=== PATIENT | male | born 1960 | race Caucasian/White ===

== ENCOUNTER 2025-06-17 12:38 | Inpatient (IN) ==
--- NOTE | 2025-06-17 12:49 | Emergency Department Note ---
Impression & Plan Atrial flutter with rapid ventricular response, Hyponatremia, Hypokalemia, LLL pneumonia ED Provider Note NAME: DES FERRERA AGE: 64 SEX: M : 1960 ARRIVES VIA: Ambulance INFORMANT: Patient, ED PROVIDER(S): Teja Aguilar MD CHIEF COMPLAINT: Outpatient referral, elevated heart rate MEDICAL DECISION MAKING: Patient presents due to concern for elevated heart rate noted to be in atrial flutter RVR. IV was established and blood work was obtained. The patient did finish a full liter bolus but was still tachycardic in the 140s so the patient was ordered 25 mg of IV Cardizem. Patient did have improvement in his rates into the 120s. Patient relatively asymptomatic w/ regard to his tachycardia ie no lightheadness, CP, or SOB. Blood work with a white count of 12 with normal platelet count. Hemoglobin is slightly elevated. This may be due to hemoconcentration. Noted to be hyponatremic although the patient has been taking prep for colonoscopy and could be secondary to GI losses in addition to lack of eating much at all in the last 2 days. Patient also noted to be hypokalemic. Urine and serum osmolality ordered along with urine electrolytes. Patient was ordered 3 potassium chloride bags to be given. Troponin to 38.4 likely demand to given the patient's tachycardia. Patient has no leg swelling or calf pain believe PE to be less likely. Believe this likely demand ischemia the patient's EKG does show rapid heart rate the patient is asymptomatic no chest pain or shortness of breath. Given the aforementioned I did speak the on-call hospitalist service Dr. Alejandro and the patient was admitted to the medicine service. Chest x-ray was commented to have a left infrahilar opacity. Patient does have a white count of 12 with cough so 2 g of IV Rocephin ordered. Patient was ordered IV heparin for a flutter rvr. Critical Care: I have personally spent 37 minutes of critical care time in direct management of this patient. This includes bedside care, interpretation of diagnostic studies, and testing, discussion with consultants, patient, and family members, and other require inpatient management activities. This 37 minutes is in excess of all separately billable procedures. Discussion w/ other healthcare providers: Dr. Alejandro inpatient medicine service Prior /Outside records reviewed: None Differential diagnosis: Premature contractions, electrolyte abnormality, cardiac dysrhythmia, thyroid dysfunction, infection, toxicologic, anxiety among others were considered. Diagnostics, as interpreted by me: ECG: Atrial flutter with variable AV block, rate of 130, normal QRS duration, left axis deviation subtle depressions noted in the lateral leads. No obvious STEMI. Cardiac monitoring: An order was placed for continuous cardiac monitoring. The monitor shows a rate of 144 with tachycardic and regular rhythm. Patient was placed on pulse oximetry Medical decision rules: [id number] score Imaging studies: I informally interpreted the patient's chest x-ray does not show evidence of obvious pneumothorax with formal report to follow. HPI: Patient presents due to concern for elevated heart rate. The patient was in preop for colonoscopy and was noted to have an elevated heart rate. Patient states that he does have a known prior history of A-fib status post ablation about 5 years ago. In preparation for his colonoscopy the patient is not eaten anything since Sunday night. Patient states that he has been taking the prep and has been trying to drink enough fluids. Patient denies any chest pains or shortness of breath no palpitations no dizziness or lightheadedness. Patient has only been taking his metoprolol and none of his other meds. Patient is not anticoagulated. He does follow through [facility]. PAST MEDICAL HISTORY: See Below PAST SURGICAL HISTORY: See Below SOCIAL HISTORY: See Below HOME MEDICATIONS: See Below ALLERGIES: See Below VITALS: See Below PHYSICAL EXAMINATION: GENERAL: NAD, non-toxic. Wearing glasses. EYE EXAM: Normal conjunctiva. PERRL, no anisocoria and EOM's grossly intact w/o pain. OROPHARYNX: Moist mucus membranes, grossly normal dentition. NECK: Trachea midline, no stridor. LUNGS: Clear to auscultation. Normal chest wall mechanics. HEART: Tachycardic and regular, no MRG. ABDOMEN: Abdomen soft, non-tender, no masses, no rebound or guarding. SKIN: No rashes and no bruising. UPPER EXTREMITIES: Upper extremities are grossly normal. LOWER EXTREMITIES: Grossly normal, no edema. Negative Homans' sign bilaterally. NEURO EXAM: Awake and alert, follows commands, no obvious facial asymmetry, normal speech, moves all 4 extremities. 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 S/P ablation of atrial fibrillation History of right hip replacement Family History Father , stage 4; age 83 Cancer Mother , age 93 Heart disease Social History Smoking Status: Current every day smoker Tobacco Type: Cigarettes Age Started Using Tobacco: 21; packs per day: 0.5; Hx Alcohol Use: Yes Alcohol type: beer Hx Substance Use: No Preferred Language: Citizen Of [place] Communication Ability: Effective Security Risk Analyst Required: No marital status: Single Current Living Situation: Alone Current Living Situation Comment: lives in [place] current occupational status: retired How many Children do You have: 0 Feels Safe at Home: Yes Safety Concerns: Feels Safe At This Time Assistive Devices: None Allergies Allergies Allergy/AdvReac Type Severity Reaction Status Date / Time dofetilide AdvReac Severe QT Verified 06/17/25 15:34 PROLONGATION Home Meds Home Medications Medication Instructions Recorded Confirmed chlorthalidone 50 mg tablet 50 mg PO DAILY 06/17/25 06/17/25 dapagliflozin propanediol 5 mg 5 mg PO QAM 06/17/25 06/17/25 tablet (Farxiga) metoprolol succinate 50 mg 50 mg PO BID 06/17/25 06/17/25 tablet,extended release 24 hr multivitamin 1 tab PO DAILY 06/17/25 06/17/25 potassium chloride 20 mEq 20 meq PO QDL 06/17/25 06/17/25 tablet,extended release rosuvastatin 20 mg tablet 20 mg PO HS 06/17/25 06/17/25 tirzepatide 12.5 mg/0.5 mL 12.5 mg subcut WK 06/17/25 06/17/25 subcutaneous pen injector (Mounjaro) Results & Data (ED) Vital Signs Vital Signs - 24 hr 06/17/25 12:47 06/17/25 12:50 06/17/25 12:54 Temperature Temperature Source Pulse Rate 128 H 136 H Pulse Rate from SpO2 Sensor 140 H Respiratory Rate 25 H Respiratory Effort / Characteristics Respiratory Depth Blood Pressure 133/99 Blood Pressure Mean 107 Pulse Oximetry 94 Oxygen Delivery Method Sepsis Recent Fever Within 48 Hours Sepsis New/Unexplained Change in Mental Status Sepsis Action Taken by Nursing 06/17/25 12:59 06/17/25 13:01 06/17/25 13:03 Temperature 36.7 C Temperature Source Oral Pulse Rate 126 H 123 H Pulse Rate from SpO2 Sensor 134 H Respiratory Rate 16 15 Respiratory Effort / Characteristics Non-Labored Spontaneous Respiratory Depth Normal Blood Pressure 133/99 138/87 Blood Pressure Mean 110 92 Pulse Oximetry 95 95 Oxygen Delivery Method Room Air Sepsis Recent Fever Within 48 Hours No Sepsis New/Unexplained Change in Mental Status No Sepsis Action Taken by Nursing No Action Required 06/17/25 13:24 06/17/25 13:31 06/17/25 13:36 Temperature Temperature Source Pulse Rate 127 H 119 H Pulse Rate from SpO2 Sensor 141 H 113 H Respiratory Rate 23 22 Respiratory Effort / Characteristics Respiratory Depth Blood Pressure 132/77 Blood Pressure Mean 104 Pulse Oximetry 96 94 Oxygen Delivery Method Sepsis Recent Fever Within 48 Hours Sepsis New/Unexplained Change in Mental Status Sepsis Action Taken by Nursing 06/17/25 14:06 06/17/25 14:48 06/17/25 15:06 Temperature Temperature Source Pulse Rate 139 H 141 H 88 Pulse Rate from SpO2 Sensor 140 H Respiratory Rate 19 24 22 Respiratory Effort / Characteristics Respiratory Depth Blood Pressure Blood Pressure Mean Pulse Oximetry 96 Oxygen Delivery Method Sepsis Recent Fever Within 48 Hours Sepsis New/Unexplained Change in Mental Status Sepsis Action Taken by Jail Medications Current Medication List: was personally reviewed by me Laboratory Data Attestation: I reviewed the patient's lab results. 06/17/25 12:48 06/17/25 12:48 Lab Results 06/17/25 06/17/25 06/17/25 Range/Units 12:48 13:06 15:03 WBC 12.05 H (4.8-10.8) K/ul RBC 5.88 (4.70-6.10) M/uL Hgb 18.4 H (14.0-18.0) g/dl Hct 50.4 (42.0-52.0) % MCV 85.7 (80.0-100.0) fL MCH 31.3 (25.0-34.0) pg MCHC 36.5 H (32.0-36.0) g/dL RDW Std Deviation 40.2 (36.4-46.3) fL RDW Coeff of Gael 12.8 (11.5-14.5) % Plt Count 206 (130-400) K/uL MPV 8.8 L (9.4-12.4) fL Immature Gran % (Auto) 0.5 % Neut % (Auto) 75.0 % Lymph % (Auto) 12.2 % [place] % (Auto) 12.0 % Eos % (Auto) 0.1 % Baso % (Auto) 0.2 % Neut # (Auto) 9.04 H (1.40-6.50) K/uL Lymph # (Auto) 1.47 (1.20-3.40) K/uL [place] # (Auto) 1.44 H (0.11-0.59) K/uL Eos # (Auto) 0.01 (0.00-0.50) K/uL Baso # (Auto) 0.03 (0.00-0.20) K/uL Immature Gran # (Auto) 0.06 (0.01-0.20) K/uL PT 12.6 H (9.0-12.0) Seconds INR 1.2 H (0.9-1.1) APTT 32 H (21-31) Seconds PTT Ratio 1.2 Heparin Anti-Xa, Unfract < 0.10 L (0.3-0.7) IU/ml Sodium 127 L (136-145) mmol/L Potassium 3.2 L (3.5-5.1) mmol/L Chloride 89 L (98-107) mmol/L Carbon Dioxide 27 (21-32) mmol/L Anion Gap 11 (3-11) BUN 17 (6-23) mg/dl Creatinine 1.05 (0.6-1.4) mg/dl Est Cr Clr Drug Dosing 86.6 ml/min eGFR 79.76 BUN/Creatinine Ratio 16.2 (10-20) Glucose 127 H (70-99(Fasting)) mg/dl Osmolality 269 L (280-300) mOsm/kg Calcium 9.0 (8.6-10.3) mg/dl Magnesium 2.2 (1.7-2.4) mg/dl Total Bilirubin 1.0 (0.2-1.0) mg/dl AST 19 (13-39) U/L ALT 18 (7-52) U/L Alkaline Phosphatase 68 (34-104) U/L Troponin I High Sens 38.4 H 38.0 H (0-20) pg/ml Total Protein 7.4 (6.0-8.3) gm/dl Albumin 3.6 (3.4-5.0) gm/dl Globulin 3.8 (2.5-4.0) gm/dl Albumin/Globulin Ratio 0.9 (0.9-2) TSH 2.311 (0.300-4.500) uIu/ml SARS-CoV-2 (PCR) NEGATIVE (Negative) Influenza Type A (PCR) Negative (Neg) Influenza Type B (PCR) Negative (Neg) RSV (RT-PCR) Negative (Neg) Administered Medications Heparin Sodium/Dextrose (Heparin 62515 Unit/500 Ml D5w) 25,000 units in 500 mls @ 20 mls/hr IV .Q24H JASVIR; Protocol Stop: 07/17/25 14:29 Last Admin: 06/17/25 15:07 Dose: 1,000 units/hr, 20 mls/hr Documented By: BABAK Co-signed By: LEEANNE Diltiazem HCl 125 mg/ Dextrose 125 mls @ 5 mls/hr IV .Q24H JASVIR; Protocol Stop: 07/17/25 15:14 Last Admin: 06/17/25 16:09 Dose: 5 mg/hr, 5 mls/hr Documented By: BABAK Co-signed By: MANNY Sodium Chloride (Nss) 1,000 mls @ 80 mls/hr IV .[id number] [facility] Stop: 06/18/25 16:14 Last Admin: 06/17/25 15:11 Dose: 80 mls/hr Documented By: BABAK Nicotine (Nicotine 14 Mg/24 Hr Patch) 1 patch TD QAM [facility] Stop: 07/17/25 16:48 Last Admin: 06/17/25 17:27 Dose: 1 patch Documented By: BERTHA Discontinued Medications Diltiazem HCl (Diltiazem Hcl 5 Mg/Ml 5 Ml Vial) 25 mg IV NOW STA Stop: 06/17/25 13:53 Last Admin: 06/17/25 14:48 Dose: 25 mg Documented By: BABAK Co-signed By: AMY Heparin Sodium/Dextrose (Heparin Iv Adult Wt-Based Low-Dose *No* Initial Bolus Protocol) 1 each IV ONE STA; Protocol Stop: 06/17/25 13:59 Last Admin: 06/17/25 15:07 Dose: Not Given Documented By: BABAK Sodium Chloride (Nss) 1,000 mls @ 999 mls/hr IV .Q1H1M STA Stop: 06/17/25 13:49 Last Infusion: 06/17/25 15:24 Dose: Infused Documented By: Admin: 06/17/25 13:16 Dose: 999 mls/hr Documented By: BABAK Potassium Chloride (K Jeff / Wtr) 10 meq in 100 mls @ 100 mls/hr IV Q1H JASVIR Stop: 06/17/25 17:29 Last Admin: 06/17/25 17:27 Dose: 100 mls/hr Documented By: Infusion: 06/17/25 16:11 Dose: Infused Documented By: Admin: 06/17/25 15:11 Dose: 100 mls/hr Documented By: BABAK Ceftriaxone Sodium (Rocephin) 2,000 mg in 50 mls @ 100 mls/hr IV NOW STA Stop: 06/17/25 15:00 Last Infusion: 06/17/25 15:24 Dose: Infused Documented By: Admin: 06/17/25 14:52 Dose: 100 mls/hr Documented By: BABAK Ioversol (Optiray 320 125ml) 120 ml IV ONCE ONE Stop: 06/17/25 16:35 Last Admin: 06/17/25 16:34 Dose: 120 ml Documented By: WILLIE Potassium Chloride (Potassium Chloride 10 Meq Tabcr) 40 meq PO NOW STA Stop: 06/17/25 14:16 Last Admin: 06/17/25 15:05 Dose: 40 meq Documented By: BABAK Imaging Data Radiologist's Impression: Chest X-Ray 06/17/25 12:49 XR chest 1V portable CLINICAL HISTORY: Dysrhythmia a COMPARISON STUDY: No previous studies for comparison. FINDINGS: The heart is mildly enlarged. An event recorder overlies the left heart shadow. There is mild central vascular prominence without evidence of overt failure. There are no significant pleural effusions. There is a subtle left infrahilar opacity. This is nonspecific and could be infectious/inflammatory, atelectatic, a summation artifact, or relate to an underlying nodule. Short-term radiographic follow-up is recommended. IMPRESSION: 1. Subtle nonspecific left infrahilar opacity. Short-term radiographic follow-up is recommended. ACT 112: Negative or not required by law. Electronically signed by: Thierno Cowan M.D. 06/17/2025 1:12 PM Chest CTA 06/17/25 15:05 Clinical history: Rule out pulmonary embolism Technique: Axial computed tomography images were obtained of the chest after the administration of intravenous contrast according to the CT angiogram protocol Findings: There is no definite sign of pulmonary embolism. There is alveolar consolidation in the left lower lobe, likely due to pneumonia. There are small calcified granulomas in the right middle lobe. There is no pleural effusion or pneumothorax. There is no sign of pulmonary fibrosis or other diffuse interstitial process. No endobronchial lesion is seen There are mildly enlarged mediastinal and left hilar lymph nodes, measuring up to 2 cm. The thoracic aorta appears unremarkable with no sign of aneurysm or dissection. There is no pericardial effusion. There is extensive coronary atherosclerosis There is a 2.2 cm left renal cyst. No fracture is seen. No focal osseous lesion is evident Impression: 1. No definite sign of pulmonary embolism 2. Left lower lobe pneumonia 3. Mild mediastinal and left hilar adenopathy, which may be secondary to the pneumonia 4. Extensive coronary atherosclerosis 5. Left renal cyst ACT 112: Positive. There are findings on this exam that require communication between the performing entity and the patient following Patient Test Result Information Act ([place] ACT 112) guidelines. Electronically signed by Tru Penn 06-17-2025 5:01 PM Discharge Plan Visit Data Chief Complaint: Cardiac Assessment Stated Complaint: TACHYCARDIA ED Provider: Teja Aguilar Discharge Problem: Atrial flutter with rapid ventricular response, Hyponatremia, Hypokalemia, LLL pneumonia Patient Disposition: Admitted As Inpatient Condition: Good Discharge Instructions Interventions: ED Discharge Assessment Last Done: 06/17/25 16:45 Discharge Problem: LLL pneumonia Qualifiers: Pneumonia type: due to unspecified organism Qualified Code(s): J18.9 - Pneumonia, unspecified organism
[2025-06-17 13:06] LABS: Hematocrit (blood only) 50.4 % (42.0-52.0); Hemoglobin 18.4 g/dl (14.0-18.0); Immature Granulocytes # (auto) 0.06 K/uL (0.01-0.20); Immature Granulocytes % (auto) 0.5 %; Mean Corpuscular Hemoglobin 31.3 pg (25.0-34.0); Mean Corpuscular Volume 85.7 fL (80.0-100.0); Platelet Count 206 K/uL (130-400); RDW Standard Deviation 40.2 fL (36.4-46.3); Red Blood Count 5.88 M/uL (4.70-6.10); White Blood Count 12.05 K/ul (4.8-10.8)
--- NOTE | 2025-06-17 13:13 | XRay Report ---
XR chest 1V portable CLINICAL HISTORY: Dysrhythmia a COMPARISON STUDY: No previous studies for comparison. FINDINGS: The heart is mildly enlarged. An event recorder overlies the left heart shadow. There is mi ld central vascular prominence without evidence of overt failure. There are no significant pleural ef fusions. There is a subtle left infrahilar opacity. This is nonspecific and could be infectious/infla mmatory, atelectatic, a summation artifact, or relate to an underlying nodule. Short-term radiographi c follow-up is recommended. IMPRESSION: 1. Subtle nonspecific left infrahilar opacity. Short-term radiographic follow-up is recommended. ACT 112: Negative or not required by law. Electronically signed by: Thierno Cowan M.D. 06/17/2025 1:12 PM
[2025-06-17] MEDS: SODIUM CHLORIDE 0.9% 1,000 ML IV STA (13:16)
[2025-06-17 13:20] LABS: Alanine Aminotransferase 18.0 U/L (7-52); Albumin Globulin Ratio 0.9 (0.9-2); Albumin Level 3.6 gm/dl (3.4-5.0); Alkaline Phosphatase 68.0 U/L (34-104); Anion Gap 11.0 (3-11); Bilirubin,Total 1.0 mg/dl (0.2-1.0); Blood Urea Nitrogen 17.0 mg/dl (6-23); Calcium 9.0 mg/dl (8.6-10.3); Carbon Dioxide 27.0 mmol/L (21-32); Chloride 89.0 mmol/L (98-107); Creatinine Clr Calc Pharmacy 86.6 ml/min; Globulin 3.8 gm/dl (2.5-4.0); Glucose 127.0 mg/dl (70-99(Fasting)); Magnesium 2.2 mg/dl (1.7-2.4); Potassium 3.2 mmol/L (3.5-5.1); Sodium 127.0 mmol/L (136-145); Total Protein 7.4 gm/dl (6.0-8.3)
[2025-06-17 13:28] LABS: INR 1.2 (0.9-1.1); Partial Thromboplastin Time 32 Seconds (21-31); Prothrombin Time 12.6 Seconds (9.0-12.0)
[2025-06-17 13:34] LABS: Thyroid Stimulating Hormone 2.311 uIu/ml (0.300-4.500)
[2025-06-17 14:07] LABS: Influenza A virus by PCR Negative (Neg); Influenza B virus by PCR Negative (Neg); SARS CoV2 RNA(COVID-19) Ceph NEGATIVE (Negative)
--- NOTE | 2025-06-17 14:17 | History & Physical Report ---
Date of Service June 17, 2025 Assessment & Plan (1) Atrial fibrillation with RVR: (2) Hyponatremia: (3) Hypokalemia: (4) Diabetes mellitus: (5) Essential hypertension: (6) Hyperlipidemia: (7) Implantable loop recorder present: (8) LLL pneumonia: Plan 64yo male with history of a.fib s/p ablation procedure at [facility] about 4 years ago, loop recorder status, T2DM, HTN, and hyperlipidemia presents from [facility] after he was found to be in rapid a.fib. He had gone to [facility] for a scheduled colonoscopy earlier today when the rapid a.fib was discovered. Despite the a.fib he denies any palpitations, dizziness, chest pain, dyspnea, or dyspnea on exertion. He has had cough for several days and in the ER today developed fever to 38.3 C. #rapid a.fib - -risk factors for such -- prior a.fib history, hypokalemia, dehydration from bowel prep, physiological stress from LLL pneumonia, physiological stress from recent travels, etc. -with cardizem bolus IV x 1 in ER his rates quickly improved to <100 -will continue cardizem drip -cont home meto succ 50mg BID -agree with heparin infusion -ultimately will need transition to PO Eliquis or similar -CHADS-VASc score is 1 (diabetes) -as patient has NOT been on chronic anticoagulation, chemical cardioversion or electrical cardioversion (unless it is a MINERVA cardioversion) not recommended at this time -hopefully he will spontaneously convert with correction of low K, Rx of pneumonia, and re-hydration with IV fluids -check echo -check loop recorder interrogation to see when he converted to a.fib -of note - TSH is wnl #hyponatremia - -appears volume contracted in the setting of bowel prep -isotonic IV fluids with serial BMPs #hypokalemia - -2nd to chlorthalidone -2nd to bowel prep/frequent stooling -2nd to limited PO intake since Sunday pm in setting of 2-day prep -replete with IV/PO supplementation -mag level wnl #LLL pneumonia - -rocephin 2gm given in ER; will continue -add azithromycin 500mg daily for atypical coverage -blood cx's x 2 sets -will obtain CTA chest to r/o concomitant PE in setting of long-distance air travel recently -send legionella urine ag -COVID/flu/RSV negative #tobacco dependence - -nicoderm patch daily -career guidance counselor to quit #T2DM - -hold Mounjaro -can cont Farxiga -check BSGs ac/hs -check a1c while here -add novolog SSI #hyperlipidemia - -can cont statin #polycythemia - -likely due to volume contraction -repeat CBC in 48 hours #minimally elevated troponin - -likely myocardial demand ischemia in setting of rapid a.fib as well as LLL pneumonia -no ischemic sx's -no evidence of ACS -echo pending #DVT proph - -heparin infusion pt's sister updated at bedside during the admission process History of Present Illness Chief Complaint: rapid a.fib Primary Care Provider: RADHA WASHINGTON 64yo male with history of a.fib s/p ablation procedure at [facility] about 4 years ago, loop recorder, T2DM, HTN, and hyperlipidemia presents from [facility] after he was found to be in rapid a.fib. He had gone to [facility] for a scheduled colonoscopy earlier today when the rapid a.fib was discovered. Despite the a.fib he denies any palpitations, dizziness, chest pain, dyspnea, or dyspnea on exertion. He reports he hasn't eaten regular food since Sunday pm, and he started his colonoscopy prep on Sunday pm. Although he denies any cardiopulmonary symptoms he states he "felt like something was off" starting late Sunday. In addition, he has had a mild cough that began on Sunday. Feels like the cough is from his throat. He recently traveled to the [place] in late April and returned from the [place] to the [place] on June 07. Denies having had leg swelling during the travels or any pulmonary symptoms. Mr Macias does continue to follow with [facility] and saw them in 03/2025. At that time he was told he could go to yearly visits. Is NOT on chronic anticoagulation. Per his recollection his loop recorder in the last several years has only showed 1 episode of PAF. The loop recorder was exchanged out in early 2024 at [facility]. Allergies Allergy/AdvReac Type Severity Reaction Status Date / Time dofetilide AdvReac Severe QT Verified 06/17/25 15:34 PROLONGATION Home Medications Medication Instructions Recorded Confirmed Type chlorthalidone 50 mg tablet 50 mg PO DAILY 06/17/25 06/17/25 History dapagliflozin propanediol 5 mg 5 mg PO QAM 06/17/25 06/17/25 History tablet (Farxiga) metoprolol succinate 50 mg 50 mg PO BID 06/17/25 06/17/25 History tablet,extended release 24 hr multivitamin 1 tab PO DAILY 06/17/25 06/17/25 History potassium chloride 20 mEq 20 meq PO QDL 06/17/25 06/17/25 History tablet,extended release rosuvastatin 20 mg tablet 20 mg PO HS 06/17/25 06/17/25 History tirzepatide 12.5 mg/0.5 mL 12.5 mg subcut WK 06/17/25 06/17/25 History subcutaneous pen injector (Manuel) Past Med/Surg History Problem List (Updated 06/18/25 @ 05:53 by Jim Alejandro MD) LLL pneumonia (Acute) Hypokalemia (Acute) Hyponatremia (Acute) Atrial fibrillation with RVR Medical History (Updated 06/18/25 @ 05:53 by Jim Alejandro MD) Diabetes mellitus Essential hypertension Hyperlipidemia History of pheochromocytoma History of atrial fibrillation Implantable loop recorder present initial placement 2020, then exchanged in early 2024 ([facility]) Surgical History H/O partial adrenalectomy 1 adrenal gland removed due to pheochromocytoma S/P ablation of atrial fibrillation History of right hip replacement Family History Father , stage 4; age 83 Cancer Mother , age 93 Heart disease Social History Smoking Status: Current every day smoker Tobacco Type: Cigarettes Age Started Using Tobacco: 21; packs per day: 0.5; Hx Alcohol Use: Yes Alcohol type: beer Hx Substance Use: No Preferred Language: Swedish Communication Ability: Effective Diploma Pharmacy Technician Required: No marital status: Single Current Living Situation: Alone Current Living Situation Comment: lives in [place] current occupational status: retired How many Children do You have: 0 Feels Safe at Home: Yes Safety Concerns: Feels Safe At This Time Assistive Devices: None Review of Systems Review of Systems: gen - denies fevers or chills; felt "off" the last 48 hours with some fatigue; no recent weight changes eyes - no ocular complaints HENT - mild post-nasal drip/throat irritation/cough CV - no chest pain pulm - mild cough, no sputum; denies dyspnea GI - recent bowel prep for colonoscopy today (canceled, due to rapid a.fib); no nausea/emesis; no blood in stool - no dysuria musculo - no myalgias neuro - no motor weakness, no paresthesias, no headache endo - is a diabetic on Mounjaro skin - no rash Physical Exam Physical Exam: gen - WD, WN, NAD, nontoxic, pleasant eyes - PERRL HENT - MM dry, no lesions; posterior pharynx with mild erythema neck - no JVD, no goiter, no lymph nodes heart - irregularly irregular, tachy, s1 s2, no murmur lungs - fine rales L base, otherwise normal airation, no wheeze, no increased work of breathing abd - soft NT ND BS+ ext - no edema, pulses 2+ b/l neuro - strength 5/5 x 4 exts; DTRs 2+ b/l upper & lower exts skin - no rash, but looks flushed on face psych - a/o x 3 Results & Data Results & Data Vital Signs (Past 12 Hours) Vital Signs Temp Pulse Resp BP Pulse Ox O2 Del Method 06/17/25 12:59 36.7 C 126 H 16 133/99 95 Room Air 06/17/25 12:50 128 H Laboratory Results Laboratory Results - last 24 hr 06/17/25 06/17/25 06/17/25 12:48 13:06 15:03 WBC 12.05 H RBC 5.88 Hgb 18.4 H Hct 50.4 MCV 85.7 MCH 31.3 MCHC 36.5 H RDW Std Deviation 40.2 RDW Coeff of Gael 12.8 Plt Count 206 MPV 8.8 L Immature Gran % (Auto) 0.5 Neut % (Auto) 75.0 Lymph % (Auto) 12.2 [place] % (Auto) 12.0 Eos % (Auto) 0.1 Baso % (Auto) 0.2 Neut # (Auto) 9.04 H Lymph # (Auto) 1.47 [place] # (Auto) 1.44 H Eos # (Auto) 0.01 Baso # (Auto) 0.03 Immature Gran # (Auto) 0.06 PT 12.6 H INR 1.2 H APTT 32 H PTT Ratio 1.2 Heparin Anti-Xa, Unfract < 0.10 L Sodium 127 L Potassium 3.2 L Chloride 89 L Carbon Dioxide 27 Anion Gap 11 BUN 17 Creatinine 1.05 Est Cr Clr Drug Dosing 86.6 eGFR 79.76 BUN/Creatinine Ratio 16.2 Glucose 127 H Osmolality 269 L Calcium 9.0 Magnesium 2.2 Total Bilirubin 1.0 AST 19 ALT 18 Alkaline Phosphatase 68 Troponin I High Sens 38.4 H Pending Total Protein 7.4 Albumin 3.6 Globulin 3.8 Albumin/Globulin Ratio 0.9 TSH 2.311 SARS-CoV-2 (PCR) NEGATIVE Influenza Type A (PCR) Negative Influenza Type B (PCR) Negative RSV (RT-PCR) Negative Diagnostic Findings Chest X-Ray 06/17/25 12:49 XR chest 1V portable CLINICAL HISTORY: Dysrhythmia a COMPARISON STUDY: No previous studies for comparison. FINDINGS: The heart is mildly enlarged. An event recorder overlies the left heart shadow. There is mild central vascular prominence without evidence of overt failure. There are no significant pleural effusions. There is a subtle left infrahilar opacity. This is nonspecific and could be infectious/inflammatory, atelectatic, a summation artifact, or relate to an underlying nodule. Short-term radiographic follow-up is recommended. IMPRESSION: 1. Subtle nonspecific left infrahilar opacity. Short-term radiographic follow-up is recommended. ACT 112: Negative or not required by law. Electronically signed by: Thierno Cowan M.D. 06/17/2025 1:12 PM ECG Additional Comments: EKG - my reading - a.fib with RVR, left axis deviation, minimal ST depression lateral leads, large R wave anteroseptal leads Code Status & VTE Plan Code Status full code PG Care Time/CCT Total # of Minutes Spent Total Time Spent with Patient: Total time spent is greater than 50% in coordination of care (as documented) at patient's floor/unit and/or counseling patient: Coding Level of Care Code 48007 INT INP/OBS CARE 3/75MIN Diagnoses Atrial fibrillation with RVR I48.91 Hyponatremia E87.1 Hypokalemia E87.6 Diabetes mellitus E11.9 Essential hypertension I10 Hyperlipidemia E78.5 Implantable loop recorder present Z95.818 LLL pneumonia J18.9 Pneumonia type: due to unspecified organism (8) LLL pneumonia Pneumonia type: due to unspecified organism Qualified Code(s): J18.9 - Pneumonia, unspecified organism
[2025-06-17] MEDS: cefTRIAXone SODIUM 2,000 MG/50 ML BAG IV STA (14:52)
[2025-06-17 14:58] LABS: ANTI-Xa, UFH(UnfractionatedHep < 0.10 IU/ml (0.3-0.7)
[2025-06-17] MEDS ORDERED: STAT IV Infusion **Titration per Protocol STA (15:00)
[2025-06-17] MEDS: POTASSIUM CHLORIDE 10 MEQ TABCR PO STA (15:05)
[2025-06-17] MEDS: Heparin IV Adult Wt-Based Low-Dose *NO* INITIAL Bolus Protocol IV STA (15:07)
[2025-06-17] MEDS: HEPARIN 25000 UNIT/500 ML D5W 25,000 UNITS/500 ML BAG IV SCH (15:07)
[2025-06-17] MEDS: SODIUM CHLORIDE 0.9% 1,000 ML IV SCH (15:11)
[2025-06-17] MEDS: POTASSIUM CHLORIDE / WTR 10 MEQ/100 ML PLCT IV SCH (15:11)
[2025-06-17] MEDS: OPTIRAY 320 125ml IV ONE (16:34)
[2025-06-17] MEDS ORDERED: ONDANSETRON INJ 2 MG/ML 2 ML VIAL IV PRN (16:49)
--- NOTE | 2025-06-17 17:03 | CT Scan Report ---
Clinical history: Rule out pulmonary embolism Technique: Axial computed tomography images were obtained of the chest after the administration of intravenous contrast according to the CT angiogram protocol Findings: There is no definite sign of pulmonary embolism. There is alveolar consolidation in the left lower lobe, likely due to pneumonia. There are small calcified granulomas in the right middle lobe. There is no pleural effusion or pneumothorax. There is no sign of pulmonary fibrosis or other diffuse interstitial process. No endobronchial lesion is seen There are mildly enlarged mediastinal and left hilar lymph nodes, measuring up to 2 cm. The thoracic aorta appears unremarkable with no sign of aneurysm or dissection. There is no pericardial effusion. There is extensive coronary atherosclerosis There is a 2.2 cm left renal cyst. No fracture is seen. No focal osseous lesion is evident Impression: 1. No definite sign of pulmonary embolism 2. Left lower lobe pneumonia 3. Mild mediastinal and left hilar adenopathy, which may be secondary to the pneumonia 4. Extensive coronary atherosclerosis 5. Left renal cyst ACT 112: Positive. There are findings on this exam that require communication between the performing entity and the patient following Patient Test Result Information Act ([place] ACT 112) guidelines. Electronically signed by Tru Penn 06-17-2025 5:01 PM
[2025-06-17] MEDS: NICOTINE 14 MG/24 HR PATCH TD SCH (17:27)
[2025-06-17] MEDS: AZITHROMYCIN 500 MG/255 ML BAG IV SCH (18:21)
--- NOTE | 2025-06-17 20:53 | XCELERA ---
[id number] \\[id number]
[2025-06-17 21:05] LABS: ANTI-Xa, UFH(UnfractionatedHep < 0.10 IU/ml (0.3-0.7)
[2025-06-17] MEDS: METOPROLOL SUCC 50MG EXT REL TAB PO SCH (21:30)
[2025-06-17] MEDS: ROSUVASTATIN CALCIUM 20 MG TAB PO SCH (21:31)
[2025-06-17] MEDS: MELATONIN 3 MG TAB PO PRN (21:40)
[2025-06-17] MEDS: HEPARIN SOD (PORCINE) 1000 UNIT/ML IV ONE (22:44)
[2025-06-17] MEDS: ALBUMIN 25% 25 GM/100 ML VIAL IV ONE (23:40)
[2025-06-18] MEDS: ACETAMINOPHEN 325 MG TAB PO PRN (00:30)
[2025-06-18 04:37] LABS: Anion Gap 9.0 (3-11); Blood Urea Nitrogen 17.0 mg/dl (6-23); Calcium 8.4 mg/dl (8.6-10.3); Carbon Dioxide 21.0 mmol/L (21-32); Chloride 99.0 mmol/L (98-107); Creatinine Clr Calc Pharmacy 98.8 ml/min; Glucose 134.0 mg/dl (70-99(Fasting)); Potassium 3.4 mmol/L (3.5-5.1); Sodium 129.0 mmol/L (136-145)
[2025-06-18 04:50] LABS: ANTI-Xa, UFH(UnfractionatedHep 0.12 IU/ml (0.3-0.7)
[2025-06-18] MEDS: HEPARIN SOD (PORCINE) 1000 UNIT/ML IV ONE ×2 (05:25→13:49)
[2025-06-18] MEDS ORDERED: GLUCOSE 10 TAB/TUBE PO PRN (06:15)
[2025-06-18] MEDS ORDERED: DEXTROSE 50% 50 ML SYRINGE IV PRN (06:15)
[2025-06-18] MEDS ORDERED: GLUCOSE 40% GEL 15 GM TUBE PO PRN (06:15)
[2025-06-18] MEDS ORDERED: GLUCAGON FOR INJ 1 MG VIAL SQ PRN (06:15)
[2025-06-18] MEDS ORDERED: CARBOHYDRATES FOR HYPOGLYCEMIA PO PRN (06:15)
[2025-06-18 07:31] LABS: Hemoglobin A1C 6.1 % (4.5-5.6)
[2025-06-18] MEDS: INSULIN ASPART PER UNIT CHARGE SC SCH (09:15)
[2025-06-18] MEDS: MULTIVITAMIN TAB PO SCH (09:16)
[2025-06-18] MEDS: REMOVE NICODERM PATCH SCH (09:17)
[2025-06-18] MEDS ORDERED: Nursing to Pharmacy Communication SCH (09:45)
[2025-06-18] MEDS: POTASSIUM CHLORIDE CRTAB 20 MEQ TABCR PO STA ×2 (10:06→10:09)
--- NOTE | 2025-06-18 11:20 | Hospitalist Progress Note ---
Date of Service June 18, 2025 Assessment & Plan (1) Atrial fibrillation with RVR: (2) LLL pneumonia: (3) Hyponatremia: (4) Hypokalemia: (5) Diabetes mellitus: (6) Essential hypertension: (7) Hyperlipidemia: (8) Implantable loop recorder present: Plan 64yo male with history of a.fib s/p ablation procedure at [facility] about 4 years ago, loop recorder status, T2DM, HTN, and hyperlipidemia presents from [facility] after he was found to be in rapid a.fib. He had gone to [facility] for a scheduled colonoscopy when the rapid a.fib was discovered. Despite the a.fib he denies any palpitations, dizziness, chest pain, dyspnea, or dyspnea on exertion. He had cough for several days and in the ER on day of presentaiton developed fever to 38.3 C. #rapid a.fib - improve rates - -risk factors for such -- prior a.fib history, hypokalemia, dehydration from bowel prep, physiological stress from LLL pneumonia, physiological stress from recent travels, etc. -further, loop recorder interrogation shows mutiple episodes of a.fib since he last saw Cardiology ([facility]) in March -remains on cardizem drip - currently at 10mg/hr -remains on meto succ 50mg BID -had been on Eliquis several years ago -will d/c heparin later today, change to Eliquis 5mg BID -as patient has NOT been on chronic anticoagulation, chemical cardioversion or electrical cardioversion (unless it is a MINERVA cardioversion) not recommended at this time -hopefully he will spontaneously convert with correction of low K, Rx of pneumonia, etc -even if he doesn't convert his rate control has improved nicely while here -echo with preserved EF & normal valve function -TSH wnl -cardiology consulted - Dr Whitmore - appreciate his consult & recs #hyponatremia - -volume contracted in the setting of bowel prep and chronic chlorthalidone usage -urine sodium borderline low 30 range -now drinking well; stop IV fluids today -repeat BMP am #hypokalemia - -2nd to chlorthalidone -2nd to bowel prep/frequent stooling -2nd to limited PO intake since Sunday pm in setting of 2-day prep -repleted/now nearly normal -cont supplementation #LLL pneumonia - -cont rocephin 2gm daily, day #2 -cont azithromycin 500mg daily for atypical coverage - day #2 -blood cx's x 2 sets remain negative -CTA chest w/o concomitant PE in setting of long-distance air travel recently to [place] [facility] [place] -sent legionella urine ag -COVID/flu/RSV negative -he had traveled to the [place]; per the literature there are no particular respiratory pathogens that are unique to the E -hopefully fevers will resolve in the next 24 hours -if fevers persist consider full Biofire panel, broadening abx, or combination of actions -recheck cxr in am tomorrow #tobacco dependence - -nicoderm patch daily -certified alcohol counselor to quit #T2DM - -hold Mounjaro -can cont Farxiga -check BSGs ac/hs -a1c 6.1% #hyperlipidemia - -can cont statin #polycythemia - -likely due to volume contraction -repeat CBC in am #minimally elevated troponin - -likely myocardial demand ischemia in setting of rapid a.fib as well as LLL pneumonia -no ischemic sx's -no evidence of ACS -echo with normal EF and normal LV wall motion #DVT proph - -heparin infusion but changing to Eliquis BID Admission and Anticipated Discharge Date Admission Date: June 17, 2025 Subjective tele - remains a.fib, but rates 90s/low 100s sitting in chair during the visit reports good appetite still with cough, not much sputum no dyspnea overnight felt warm/had sweats Review of Systems Review of Systems: cv - no chest pain pulm - no dyspnea on exertion GI - no N/V Physical Exam Physical Exam: gen - looks good today, NAD, sitting in chair HENT - MMM neck - no JVD heart - irregularly irregular, regular rate, s1 s2, no murmur lungs - rales L base, otherwise normal airation, no wheeze, no increased work of breathing abd - soft NT ND BS+ ext - no edema, pulses 2+ b/l psych - a/o x 3 Results & Data Results & Data Vital Signs (Past 12 Hours) Vital Signs Temp Pulse Pulse Resp BP Pulse Ox O2 Del Method 06/18/25 10:23 Room Air 06/18/25 08:02 37.7 C H 109 H 18 132/80 93 Room Air 06/18/25 07:31 108 H 10/23/25 04:24 37.8 C H 93 H 18 124/81 94 Room Air 06/18/25 00:04 38.1 C H 142 H 18 113/77 94 CPAP 06/17/25 23:26 138 H 22 92 FiO2 06/18/25 10:23 06/18/25 08:02 06/18/25 07:31 06/18/25 04:24 06/18/25 00:04 06/17/25 23:26 21 Laboratory Results Laboratory Results - last 24 hr 06/17/25 06/17/25 06/17/25 12:48 13:06 15:03 WBC 12.05 H RBC 5.88 Hgb 18.4 H Hct 50.4 MCV 85.7 MCH 31.3 MCHC 36.5 H RDW Std Deviation 40.2 RDW Coeff of Gael 12.8 Plt Count 206 MPV 8.8 L Immature Gran % (Auto) 0.5 Neut % (Auto) 75.0 Lymph % (Auto) 12.2 [place] % (Auto) 12.0 Eos % (Auto) 0.1 Baso % (Auto) 0.2 Neut # (Auto) 9.04 H Lymph # (Auto) 1.47 [place] # (Auto) 1.44 H Eos # (Auto) 0.01 Baso # (Auto) 0.03 Immature Gran # (Auto) 0.06 PT 12.6 H INR 1.2 H APTT 32 H PTT Ratio 1.2 Heparin Anti-Xa, Unfract < 0.10 L Sodium 127 L Potassium 3.2 L Chloride 89 L Carbon Dioxide 27 Anion Gap 11 BUN 17 Creatinine 1.05 Est Cr Clr Drug Dosing 86.6 eGFR 79.76 BUN/Creatinine Ratio 16.2 Glucose 127 H POC Glucose Estimat Average Glucose Hemoglobin A1c Osmolality 269 L Calcium 9.0 Magnesium 2.2 Total Bilirubin 1.0 AST 19 ALT 18 Alkaline Phosphatase 68 Troponin I High Sens 38.4 H 38.0 H Total Protein 7.4 Albumin 3.6 Globulin 3.8 Albumin/Globulin Ratio 0.9 TSH 2.311 Urine Osmolality Urine Sodium Urine Potassium Urine Chloride SARS-CoV-2 (PCR) NEGATIVE Influenza Type A (PCR) Negative Influenza Type B (PCR) Negative Urine Legionella Ag RSV (RT-PCR) Negative 06/17/25 06/17/25 06/17/25 17:05 20:24 20:26 WBC RBC Hgb Hct MCV MCH MCHC RDW Std Deviation RDW Coeff of Gael Plt Count MPV Immature Gran % (Auto) Neut % (Auto) Lymph % (Auto) [place] % (Auto) Eos % (Auto) Baso % (Auto) Neut # (Auto) Lymph # (Auto) [place] # (Auto) Eos # (Auto) Baso # (Auto) Immature Gran # (Auto) PT INR APTT PTT Ratio Heparin Anti-Xa, Unfract < 0.10 L Sodium Potassium Chloride Carbon Dioxide Anion Gap BUN Creatinine Est Cr Clr Drug Dosing eGFR BUN/Creatinine Ratio Glucose POC Glucose 158 H 154 H Estimat Average Glucose Hemoglobin A1c Osmolality Calcium Magnesium Total Bilirubin AST ALT Alkaline Phosphatase Troponin I High Sens Total Protein Albumin Globulin Albumin/Globulin Ratio TSH Urine Osmolality Urine Sodium Urine Potassium Urine Chloride SARS-CoV-2 (PCR) Influenza Type A (PCR) Influenza Type B (PCR) Urine Legionella Ag RSV (RT-PCR) 06/17/25 06/18/25 06/18/25 Unknown 04:00 04:06 WBC RBC Hgb Hct MCV MCH MCHC RDW Std Deviation RDW Coeff of Gael Plt Count MPV Immature Gran % (Auto) Neut % (Auto) Lymph % (Auto) [place] % (Auto) Eos % (Auto) Baso % (Auto) Neut # (Auto) Lymph # (Auto) [place] # (Auto) Eos # (Auto) Baso # (Auto) Immature Gran # (Auto) PT INR APTT PTT Ratio Heparin Anti-Xa, Unfract 0.12 L Sodium 129 L Potassium 3.4 L Chloride 99 Carbon Dioxide 21 Anion Gap 9 BUN 17 Creatinine 0.92 Est Cr Clr Drug Dosing 98.8 eGFR 93.47 BUN/Creatinine Ratio 18.5 Glucose 134 H POC Glucose Estimat Average Glucose 128 Hemoglobin A1c 6.1 H Osmolality Calcium 8.4 L Magnesium Total Bilirubin AST ALT Alkaline Phosphatase Troponin I High Sens Total Protein Albumin Globulin Albumin/Globulin Ratio TSH Urine Osmolality 391 L Urine Sodium 26 Urine Potassium 20.6 Urine Chloride 33 SARS-CoV-2 (PCR) Influenza Type A (PCR) Influenza Type B (PCR) Urine Legionella Ag Pending RSV (RT-PCR) 06/18/25 07:54 WBC RBC Hgb Hct MCV MCH MCHC RDW Std Deviation RDW Coeff of Gael Plt Count MPV Immature Gran % (Auto) Neut % (Auto) Lymph % (Auto) [place] % (Auto) Eos % (Auto) Baso % (Auto) Neut # (Auto) Lymph # (Auto) [place] # (Auto) Eos # (Auto) Baso # (Auto) Immature Gran # (Auto) PT INR APTT PTT Ratio Heparin Anti-Xa, Unfract Sodium Potassium Chloride Carbon Dioxide Anion Gap BUN Creatinine Est Cr Clr Drug Dosing eGFR BUN/Creatinine Ratio Glucose POC Glucose 163 H Estimat Average Glucose Hemoglobin A1c Osmolality Calcium Magnesium Total Bilirubin AST ALT Alkaline Phosphatase Troponin I High Sens Total Protein Albumin Globulin Albumin/Globulin Ratio TSH Urine Osmolality Urine Sodium Urine Potassium Urine Chloride SARS-CoV-2 (PCR) Influenza Type A (PCR) Influenza Type B (PCR) Urine Legionella Ag RSV (RT-PCR) Diagnostic Findings loop recorder interrogation - multiple episodes of a.fib since March PG Care Time/CCT Total # of Minutes Spent Total Time Spent with Patient: Total time spent is greater than 50% in coordination of care (as documented) at patient's floor/unit and/or counseling patient: Coding Level of Care Code 40288 SUB INP/OBS CARE 3/50MIN Diagnoses Atrial fibrillation with RVR I48.91 LLL pneumonia J18.9 Pneumonia type: due to unspecified organism Hyponatremia E87.1 Hypokalemia E87.6 Diabetes mellitus E11.9 Essential hypertension I10 Hyperlipidemia E78.5 Implantable loop recorder present Z95.818 (2) LLL pneumonia Pneumonia type: due to unspecified organism Qualified Code(s): J18.9 - Pneumonia, unspecified organism
[2025-06-18] MEDS: POTASSIUM CHLORIDE CRTAB 20 MEQ TABCR PO SCH (12:04)
[2025-06-18] MEDS: guaiFENesin 600 MG TABCR PO SCH (12:05)
[2025-06-18 13:03] LABS: ANTI-Xa, UFH(UnfractionatedHep < 0.10 IU/ml (0.3-0.7)
[2025-06-18] MEDS: LEVALBUTEROL TARTRATE 15 GM HFA.AER.AD INH SCH (13:04)
[2025-06-18] MEDS: cefTRIAXone SODIUM 2,000 MG/50 ML BAG IV SCH (14:50)
--- NOTE | 2025-06-18 18:32 | Cardiology Consultation ---
Date of Consultation June 18, 2025 Assessment & Plan (1) Atrial fibrillation with RVR: (2) Implantable loop recorder present: (3) Essential hypertension: (4) Hyperlipidemia: (5) S/P ablation of atrial fibrillation: (6) Tobacco abuse: Plan ASSESSMENT/PLAN: 1. Atrial fibrillation: Persistent. Does not appear to be significantly symptomatic however also recent colon prep and diagnosed with pneumonia. We discussed treatment strategies, including transesophageal echo followed by cardioversion if no thrombus noted. It appears as though he has been in atrial fibrillation for greater than 48 hours and is not chronically on anticoagulation therapy. He prefers rate control strategy for now with hopes of spontaneously converting. He has had brief episodes of atrial fibrillation monitored through his corporate legal intern in the past. Increase metoprolol succinate to 100 mg twice daily and can wean diltiazem drip as able to keep heart rate between 60 and 100 bpm and systolic blood pressure greater than 100 mmHg. Agree with anticoagulation for stroke risk reduction. Can transition to Eliquis 5 mg twice daily at or before discharge in place of heparin. 2. Loop recorder: Followed by electrophysiology at [facility]. He would like to establish cardiology care locally as well. Will request EP referral in the outpatient setting. 3. Hypertension: Blood pressure well-controlled. Plan as above. 4. Dyslipidemia: Chronically on statin therapy. Continue statin. 5. Tobacco abuse: Recommended that he stop smoking. 6. Hyponatremia: As per primary hospitalist service. In the setting of colon prep earlier this week and ammonia. 7. Disposition: Cardiology will continue to follow. Patient care communicated with primary hospitalist, Dr. Alejandro. Thank you for allowing me to participate in the care of your patient. Please call for any other questions or concerns. Sincerely, Carlyle Whitmore M.D. History of Present Illness Reason for Consultation: Atrial fibrillation Requesting Physician: Jim Alejandro MD Attending Physician: Jim Alejandro MD History of Present Illness Mr. Macias is a very pleasant 64-year-old gentleman with history significant for atrial fibrillation s/p ablation (February 2022), hypertension, dyslipidemia, type 2 diabetes, loop recorder, and reported pheochromocytoma s/p partial adrenalectomy. He is followed at [facility] by electrophysiology, Dr. Luong. When he was diagnosed with atrial fibrillation in approximately 2021, he had decreased stamina but no palpitations. He underwent DC cardioversion which apparently was unsuccessful per his report. He also recalls trying what sounds to be antiarrhythmic therapy, also unsuccessfully. He eventually underwent ablation. He felt much better after ablation. He has had the following studies/procedures: 1. Atrial fibrillation ablation February 2022 [facility] (Dr. Luong) 2. Loop recorder implantation 09/30/2024 [facility] (Dr. Luong): [employer] (acquired by [employer]) biomonitor IIIm. 3. Echo 06/17/2025 [facility]: Normal LV size, wall motion, systolic function. EF 60-65%. Severe concentric LVH. Moderate left atrial dilation. Mild MR. He was admitted on 06/17/2025 after he presented to [facility] for colonoscopy and noted to be in A-fib with RVR. He wears a smart watch and believes that his heart rate increased to the 120s at rest on 06/14/2025, but he denied palpitations. He then started his prep for the colonoscopy the following day. He noted that he did not feel himself but also attributed it to the colonoscopy prep. He was having a hard time sleeping. He was coughing and possibly short of breath. On presentation here, he was diagnosed with pneumonia noted on chest x-ray and confirmed on CTA on 06/17/2025. Extensive coronary atherosclerosis was also reported. He was placed on antibiotics by primary hospitalist service as well as a diltiazem drip. He typically takes metoprolol succinate 50 mg twice daily at home. He has not been on anticoagulation therapy since approximately 6 months after his A-fib ablation in 2021. He states that he had every 6 month meetings with his corporate legal intern and A-fib has been monitored via his loop recorder. Prior to the more recent implantation, he had another loop recorder. He denies chest pain, palpitations, syncope, near syncope, edema, melena, hematochezia, hematuria, nausea, vomiting. He had a fever in the ER. Review of systems: As above. Family history: Noncontributory. Social history: Smokes less than 0.5 pack/day. Occasional alcohol. No drugs. Lives alone. Never . [place] children[place] Retired from [employer] and [employer]. He was unaccompanied. Allergies Allergy/AdvReac Type Severity Reaction Status Date / Time dofetilide AdvReac Severe QT Verified 06/17/25 15:34 PROLONGATION Home Medications Medication Instructions Recorded Confirmed Type chlorthalidone 50 mg tablet 50 mg PO DAILY 06/17/25 06/17/25 History dapagliflozin propanediol 5 mg 5 mg PO QAM 06/17/25 06/17/25 History tablet (Farxiga) metoprolol succinate 50 mg 50 mg PO BID 06/17/25 06/17/25 History tablet,extended release 24 hr multivitamin 1 tab PO DAILY 06/17/25 06/17/25 History potassium chloride 20 mEq 20 meq PO QDL 06/17/25 06/17/25 History tablet,extended release rosuvastatin 20 mg tablet 20 mg PO HS 06/17/25 06/17/25 History tirzepatide 12.5 mg/0.5 mL 12.5 mg subcut WK 06/17/25 06/17/25 History subcutaneous pen injector (Mounjaro) apixaban 5 mg tablet (Eliquis) 5 mg PO BID #60 tabs 06/18/25 Rx Patient History Medical History (Updated 06/18/25 @ 18:47 by Víctor Whitmore MD) Diabetes mellitus Essential hypertension Hyperlipidemia History of pheochromocytoma History of atrial fibrillation Implantable loop recorder present initial placement 2020, then exchanged in early [facility] Surgical History H/O partial adrenalectomy 1 adrenal gland removed due to pheochromocytoma S/P ablation of atrial fibrillation History of right hip replacement Family History Father , stage 4; age 83 Cancer Mother , age 93 Heart disease Social History Smoking Status: Current every day smoker Tobacco Type: Cigarettes Age Started Using Tobacco: 21; packs per day: 0.5; Hx Alcohol Use: Yes Alcohol type: beer Hx Substance Use: No Preferred Language: Namibian Communication Ability: Effective Shopfitter Required: No marital status: Single Current Living Situation: Alone Current Living Situation Comment: lives in [place] current occupational status: retired How many Children do You have: 0 Feels Safe at Home: Yes Safety Concerns: Feels Safe At This Time Assistive Devices: None Physical Exam Physical Exam: Gen.: No acute distress. Alert and oriented. HEENT: Anicteric sclera. Neck: Thick neck. No JVD. No bruits. Normal carotid upstrokes bilaterally. Cardiac: Irregularly irregular. Normal S1-S2. No murmurs, rubs, or gallops. Pulmonary: Coarse sounds left lower lung field. Otherwise clear to auscultation bilaterally. Abdomen: Soft, nontender, nondistended, with normoactive bowel sounds. No bruits noted. Extremities: 2+ radial pulses bilaterally. 2+ posterior tibialis pulses bilaterally. No significant pitting edema or cyanosis. Results & Data Vital Signs (Past 12 Hours) Vital Signs Temp Pulse Pulse Resp BP Pulse Ox O2 Del Method 06/18/25 16:37 37.3 C 94 H 18 108/72 94 Room Air 06/18/25 14:52 38.0 C H 112 H 06/18/25 14:19 120 H 06/18/25 13:34 39.2 C H 118 H 06/18/25 13:04 102 H 18 93 Room Air 06/18/25 11:46 37.3 C 94 H 18 108/72 94 Room Air 06/18/25 10:23 Room Air 06/18/25 08:02 37.7 C H 109 H 18 132/80 93 Room Air 06/18/25 07:31 108 H Laboratory Results Laboratory Results - last 24 hr 06/17/25 06/17/25 06/17/25 20:24 20:26 Unknown Heparin Anti-Xa, Unfract < 0.10 L Sodium Potassium Chloride Carbon Dioxide Anion Gap BUN Creatinine Est Cr Clr Drug Dosing eGFR BUN/Creatinine Ratio Glucose POC Glucose 154 H Estimat Average Glucose Hemoglobin A1c Calcium Urine Osmolality 391 L Urine Sodium 26 Urine Potassium 20.6 Urine Chloride 33 Urine Legionella Ag Pending 06/18/25 06/18/25 06/18/25 04:00 04:06 07:54 Heparin Anti-Xa, Unfract 0.12 L Sodium 129 L Potassium 3.4 L Chloride 99 Carbon Dioxide 21 Anion Gap 9 BUN 17 Creatinine 0.92 Est Cr Clr Drug Dosing 98.8 eGFR 93.47 BUN/Creatinine Ratio 18.5 Glucose 134 H POC Glucose 163 H Estimat Average Glucose 128 Hemoglobin A1c 6.1 H Calcium 8.4 L Urine Osmolality Urine Sodium Urine Potassium Urine Chloride Urine Legionella Ag 06/18/25 06/18/25 06/18/25 10:54 11:16 12:15 Heparin Anti-Xa, Unfract Cancelled < 0.10 L Sodium Potassium Chloride Carbon Dioxide Anion Gap BUN Creatinine Est Cr Clr Drug Dosing eGFR BUN/Creatinine Ratio Glucose POC Glucose 152 H Estimat Average Glucose Hemoglobin A1c Calcium Urine Osmolality Urine Sodium Urine Potassium Urine Chloride Urine Legionella Ag 06/18/25 18:18 Heparin Anti-Xa, Unfract Sodium Potassium Chloride Carbon Dioxide Anion Gap BUN Creatinine Est Cr Clr Drug Dosing eGFR BUN/Creatinine Ratio Glucose POC Glucose 134 H Estimat Average Glucose Hemoglobin A1c Calcium Urine Osmolality Urine Sodium Urine Potassium Urine Chloride Urine Legionella Ag Diagnostic Findings Telemetry personally reviewed: Atrial fibrillation. History and physical report reviewed. Echo report reviewed as summarized above in HPI. ECG personally reviewed 06/17/2025 at 1254: Atrial fibrillation 130 bpm. PVCs versus aberrantly conducted complexes. CTA chest report reviewed from 06/17/2025: No pulmonary embolism reported. Left lower lobe pneumonia. Extensive coronary atherosclerosis. Labs reviewed and notable for mild leukocytosis, mild hyponatremia (improving), mild hypokalemia (improving), stable renal function, slightly elevated A1c, elevated high-sensitivity troponin peaking at 38.4. Medications Administered Current Inpatient Medications Acetaminophen (Acetaminophen 325 Mg Tab) 650 mg PO Q4H PRN PRN Reason: Pain or Fever Stop: 07/17/25 16:48 Last Admin: 06/18/25 13:37 Dose: 650 mg Dextrose (Dextrose 50% 50 Ml Syringe) 25 - 50 ml IV UD PRN; Protocol PRN Reason: Hypoglycemia Protocol Stop: 07/18/25 06:14 Glucagon (Glucagon For Inj 1 Mg Vial) 1 mg SQ UD PRN; Protocol PRN Reason: Hypoglycemia Protocol Stop: 07/18/25 06:14 Glucose (Glucose 40% Gel 15 Gm Tube) 15 - 30 gm PO UD PRN; Protocol PRN Reason: Hypoglycemia Protocol Stop: 07/18/25 06:14 Glucose (Glucose 10 Tab/Tube) 4 - 8 tab PO UD PRN; Protocol PRN Reason: Hypoglycemia Protocol Stop: 07/18/25 06:14 Guaifenesin (Guaifenesin 600 Mg Tabcr) 1,200 mg PO Q12 [facility] Stop: 07/18/25 11:29 Last Admin: 06/18/25 12:05 Dose: 1,200 mg Heparin Sodium/Dextrose (Heparin 44117 Unit/500 Ml D5w) 25,000 units in 500 mls @ 33 mls/hr IV .[id number] [facility]; Protocol Stop: 07/17/25 14:29 Last Admin: 06/18/25 16:37 Dose: 1,650 units/hr, 33 mls/hr Diltiazem HCl 125 mg/ Dextrose 125 mls @ 10 mls/hr IV .[id number] [facility]; Protocol Stop: 07/17/25 15:14 Last Admin: 06/18/25 16:37 Dose: 10 mg/hr, 10 mls/hr Ceftriaxone Sodium (Rocephin) 2,000 mg in 50 mls @ 100 mls/hr IV Q24H [facility] Stop: 06/23/25 14:59 Last Infusion: 06/18/25 15:41 Dose: Infused Azithromycin (Zithromax) 500 mg in 255 mls @ 127.5 mls/hr IV Q24H [facility] Stop: 06/22/25 17:59 Last Admin: 06/18/25 18:19 Dose: 127.5 mls/hr Insulin Aspart (Insulin Aspart Per Unit Charge) 0 units SC ACHS [facility] Stop: 07/18/25 07:29 Last Admin: 06/18/25 12:51 Dose: Not Given Levalbuterol HCl (Levalbuterol Tartrate 15 Gm Hfa.Aer.Ad) 2 puffs INH BIDR [facility] Stop: 07/18/25 11:29 Last Admin: 06/18/25 13:04 Dose: 2 puffs Melatonin (Melatonin 3 Mg Tab) 3 mg PO HS PRN PRN Reason: Sleep Stop: 07/17/25 16:48 Last Admin: 06/17/25 21:40 Dose: 3 mg Metoprolol Succinate (Metoprolol Succ 50mg Ext Rel Tab) 50 mg PO BID [facility] Stop: 07/17/25 20:59 Last Admin: 06/18/25 09:16 Dose: 50 mg Miscellaneous (Remove Nicoderm Patch) 1 each N/A DAILY@0859 [facility] Stop: 07/18/25 08:58 Last Admin: 06/18/25 09:17 Dose: 1 each Miscellaneous (Carbohydrates For Hypoglycemia ) 15 - 30 gm PO UD PRN PRN Reason: Hypoglycemia Treatment Stop: 07/18/25 06:14 Multivitamins (Multivitamin Tab) 1 tab PO DAILY [facility] Stop: 07/18/25 08:59 Last Admin: 06/18/25 09:16 Dose: 1 tab Nicotine (Nicotine 14 Mg/24 Hr Patch) 1 patch TD QAM [facility] Stop: 07/17/25 16:48 Last Admin: 06/18/25 09:17 Dose: Not Given Ondansetron HCl (Ondansetron Inj 2 Mg/Ml 2 Ml Vial) 4 mg IV Q6H PRN PRN Reason: Nausea Stop: 07/17/25 16:48 Potassium Chloride (Potassium Chloride Crtab 20 Meq Tabcr) 20 meq PO QDL [facility]AS[facility] Stop: 07/18/25 11:29 Last Admin: 06/18/25 12:04 Dose: 20 meq Rosuvastatin Calcium (Rosuvastatin Calcium 20 Mg Tab) 20 mg PO HS [facility]AS[facility]IR Stop: 07/17/25 20:59 Last Admin: 06/17/25 21:31 Dose: Not Given PG Care Time/CCT Total # of Minutes Spent Total Time Spent with Patient: Total time spent is greater than 50% in coordination of care (as documented) at patient's floor/unit and/or counseling patient: Coding Level of Care Code 04630 INT INP/OBS CARE 3/75MIN Diagnoses Atrial fibrillation with RVR I48.91 Implantable loop recorder present Z95.818 Essential hypertension I10 Hyperlipidemia E78.5 S/P ablation of atrial fibrillation Z98.890; Z86.79 Tobacco abuse Z72.0
[2025-06-18 20:01] LABS: ANTI-Xa, UFH(UnfractionatedHep 0.16 IU/ml (0.3-0.7)
[2025-06-18] MEDS: METOPROLOL SUCC 50MG EXT REL TAB PO SCH (20:28)
[2025-06-18] MEDS: APIXABAN 5 MG TABLET PO SCH (20:29)
[2025-06-19] MEDS: MELATONIN 3 MG TAB PO SCH (04:53)
--- NOTE | 2025-06-19 06:03 | Electrocardiogram Report ---
Test Reason : Blood Pressure : */* mmHG Vent. Rate : 130 BPM Atrial Rate : 286 BPM P-R Int : * ms QRS Dur : 104 ms QT Int : 302 ms P-R-T Axes : 9 -52 131 degrees QTcB Int : 444 ms Atrial fibrillation with premature ventricular or aberrantly conducted complexes Left anterior fascicular block Abnormal ECG No previous ECGs available Confirmed by Víctor Whitmore ([id number]) on 06/19/2025 6:03:36 AM Referred By: Confirmed By: Víctor Whitmore
[2025-06-19 06:45] LABS: Hematocrit (blood only) 40.7 % (42.0-52.0); Hemoglobin 14.9 g/dl (14.0-18.0); Immature Granulocytes # (auto) 0.06 K/uL (0.01-0.20); Immature Granulocytes % (auto) 0.6 %; Mean Corpuscular Hemoglobin 31.0 pg (25.0-34.0); Mean Corpuscular Volume 84.6 fL (80.0-100.0); Platelet Count 202 K/uL (130-400); RDW Standard Deviation 38.7 fL (36.4-46.3); Red Blood Count 4.81 M/uL (4.70-6.10); White Blood Count 10.41 K/ul (4.8-10.8)
[2025-06-19 07:07] LABS: Anion Gap 9.0 (3-11); Blood Urea Nitrogen 9.0 mg/dl (6-23); Calcium 8.3 mg/dl (8.6-10.3); Carbon Dioxide 23.0 mmol/L (21-32); Chloride 96.0 mmol/L (98-107); Creatinine Clr Calc Pharmacy 120.8 ml/min; Glucose 127.0 mg/dl (70-99(Fasting)); Potassium 3.8 mmol/L (3.5-5.1); Sodium 128.0 mmol/L (136-145)
--- NOTE | 2025-06-19 09:33 | XRay Report ---
XR chest 2V PA/lateral HISTORY: 64 years-old Male LLL pneumonia, persistent fever acute fever with pneumonia COMPARISON: Chest radiograph and CTA chest 06/17/2025 TECHNIQUE: PA and lateral views of the chest FINDINGS: Cardiac silhouette is enlarged. Electronic device projects over the left heart border. Pulmonary vasc ular congestion. Blunting of the costophrenic angles with progressively worsened consolidation of the left lower lobe. Bones appear grossly intact. IMPRESSION: 1. Cardiomegaly with pulmonary vascular congestion. 2. Persistent left lower lobe pneumonia which appears to have mildly progressed. 3. Trace pleural effusions. ACT 112: Negative or not required by law. The above report was generated using voice recognition software. It may contain grammatical, syntax o r spelling errors. Electronically signed by: Walt Marinelli M.D. 06/19/2025 9:32 AM
[2025-06-19] MEDS: SODIUM CHLORIDE 1 GM TABLET PO SCH (09:40)
--- NOTE | 2025-06-19 16:05 | Cardiology Progress Note ---
Date of Service June 19, 2025 Assessment & Plan (1) Atrial fibrillation with RVR: (2) Implantable loop recorder present: (3) Essential hypertension: (4) Hyperlipidemia: (5) S/P ablation of atrial fibrillation: (6) Tobacco abuse: (7) Atrial flutter: Plan ASSESSMENT/PLAN: 1. Atrial flutter: He was regular on exam today and thus ECG was ordered. He is in atrial flutter. Recommend evaluation by electrophysiology at some point, nonurgently. EP evaluation can also be done in the outpatient setting. He may be a candidate for ablation. Heart rate is reasonably controlled on diltiazem drip and metoprolol. Will start diltiazem 60 mg p.o. every 6 hours with hopes of weaning and discontinuation of diltiazem drip which is currently 15 mg/h. Continue anticoagulation for stroke risk reduction. 2. Atrial fibrillation s/p ablation: Currently appears to be in atrial flutter. Continue rate controlling medications. Follows at [facility]. Continue anticoagulation for stroke risk reduction. 2. Loop recorder: Followed by electrophysiology at [facility]. He would like to establish cardiology care locally as well. Will request EP referral in the outpatient setting. 3. Hypertension: Blood pressure well-controlled. Plan as above. 4. Dyslipidemia: Chronically on statin therapy. Continue statin. 5. Tobacco abuse: Smoking cessation. 6. Hyponatremia: As per primary hospitalist service. In the setting of colon prep earlier this week and pneumonia. 7. Disposition: I will be away from the hospital after 5 PM. Please call on- call electrical tester battery with any further questions or concerns. Recommend outpatient follow-up with electrophysiology as he would like to establish care locally as well. Electrophysiology can follow his loop recorder and his atrial flutter. Dr. Bauer will be rounding this weekend if there are any further questions or concerns. Patient care communicated with primary hospitalist, Dr. Alejandro. Admission and Anticipated Discharge Date Admission Date: June 17, 2025 Subjective Patient seen this morning. He denies chest pain, syncope, near syncope, palpitations, edema, or bleeding. He is feeling much better. He was unaccompanied. Physical Exam Physical Exam: Gen.: No acute distress. Alert and oriented. HEENT: Anicteric sclera. Neck: Thick neck. No JVD. Cardiac: Regular with normal rate. Normal S1-S2. No murmurs, rubs, or gallops. Pulmonary: Clear to auscultation bilaterally. Abdomen: Soft, nontender, nondistended, with normoactive bowel sounds. No bruits noted. Extremities: 2+ radial pulses bilaterally. 2+ posterior tibialis pulses bilaterally. No significant pitting edema or cyanosis. Results & Data Vital Signs (Past 12 Hours) Vital Signs Temp Pulse Pulse Resp BP Pulse Ox Pulse Ox 06/19/25 16:00 95 06/19/25 16:00 77 06/19/25 15:06 37.4 C 79 18 118/77 91 06/19/25 11:22 06/19/25 11:04 36.8 C 78 19 102/68 93 06/19/25 08:06 36.9 C 88 22 106/72 92 06/19/25 07:30 91 H 06/19/25 07:13 84 18 92 O2 Del Method O2 Del Method 06/19/25 16:00 Room Air 06/19/25 16:00 06/19/25 15:06 Room Air 06/19/25 11:22 Room Air, CPAP 06/19/25 11:04 Room Air 06/19/25 08:06 Room Air 06/19/25 07:30 06/19/25 07:13 Room Air Intake & Output 06/17/25 06/18/25 06/19/25 06/20/25 06:59 06:59 06:59 06:59 Intake Total 3361.250 / 3361.250 2528.199 / 2528.199 804.25 / 804.25 Output Total Balance 3360.250 / 3360.250 2528.199 / 2528.199 804.25 / 804.25 Weight 218 lb 3 oz 229 lb 8 oz Laboratory Results Laboratory Results - last 24 hr 06/17/25 06/18/25 06/18/25 Unknown 18:18 19:15 WBC RBC Hgb Hct MCV MCH MCHC RDW Std Deviation RDW Coeff of Gael Plt Count MPV Immature Gran % (Auto) Neut % (Auto) Lymph % (Auto) [place] % (Auto) Eos % (Auto) Baso % (Auto) Neut # (Auto) Lymph # (Auto) [place] # (Auto) Eos # (Auto) Baso # (Auto) Immature Gran # (Auto) Heparin Anti-Xa, Unfract 0.16 L Sodium Potassium Chloride Carbon Dioxide Anion Gap BUN Creatinine Est Cr Clr Drug Dosing eGFR BUN/Creatinine Ratio Glucose POC Glucose 134 H Calcium Urine Osmolality Ur Random Sodium Urine Legionella Ag SEE NOTE 06/18/25 06/19/25 06/19/25 20:33 06:21 08:06 WBC 10.41 RBC 4.81 Hgb 14.9 D Hct 40.7 L MCV 84.6 MCH 31.0 MCHC 36.6 H RDW Std Deviation 38.7 RDW Coeff of Gael 12.5 Plt Count 202 MPV 8.7 L Immature Gran % (Auto) 0.6 Neut % (Auto) 72.9 Lymph % (Auto) 12.3 [place] % (Auto) 13.5 Eos % (Auto) 0.2 Baso % (Auto) 0.5 Neut # (Auto) 7.59 H Lymph # (Auto) 1.28 [place] # (Auto) 1.41 H Eos # (Auto) 0.02 Baso # (Auto) 0.05 Immature Gran # (Auto) 0.06 Heparin Anti-Xa, Unfract Sodium 128 L Potassium 3.8 Chloride 96 L Carbon Dioxide 23 Anion Gap 9 BUN 9 Creatinine 0.72 Est Cr Clr Drug Dosing 120.8 eGFR 102.66 BUN/Creatinine Ratio 12.5 Glucose 127 H POC Glucose 108 H 125 H Calcium 8.3 L Urine Osmolality Ur Random Sodium Urine Legionella Ag 06/19/25 06/19/25 09:09 11:38 WBC RBC Hgb Hct MCV MCH MCHC RDW Std Deviation RDW Coeff of Gael Plt Count MPV Immature Gran % (Auto) Neut % (Auto) Lymph % (Auto) [place] % (Auto) Eos % (Auto) Baso % (Auto) Neut # (Auto) Lymph # (Auto) [place] # (Auto) Eos # (Auto) Baso # (Auto) Immature Gran # (Auto) Heparin Anti-Xa, Unfract Sodium Potassium Chloride Carbon Dioxide Anion Gap BUN Creatinine Est Cr Clr Drug Dosing eGFR BUN/Creatinine Ratio Glucose POC Glucose 116 H Calcium Urine Osmolality 485 L Ur Random Sodium 64 Urine Legionella Ag Diagnostic Findings ECG personally reviewed 06/19/2025: Atrial flutter 77 bpm. Incomplete RBBB. Nonspecific ST/T wave abnormality. Prolonged QT. Labs reviewed and notable for mild hyponatremia, normal potassium, normal renal function, normal blood counts. Telemetry personally reviewed this morning with atrial fibrillation/flutter and adequate rate control. Medications Administered Current Inpatient Medications Acetaminophen (Acetaminophen 325 Mg Tab) 650 mg PO Q4H PRN PRN Reason: Pain or Fever Stop: 07/17/25 16:48 Last Admin: 06/19/25 06:25 Dose: 650 mg Apixaban (Apixaban 5 Mg Tablet) 5 mg PO BID JASVIR Stop: 07/18/25 20:59 Last Admin: 06/19/25 09:37 Dose: 5 mg Dextrose (Dextrose 50% 50 Ml Syringe) 25 - 50 ml IV UD PRN; Protocol PRN Reason: Hypoglycemia Protocol Stop: 07/18/25 06:14 Glucagon (Glucagon For Inj 1 Mg Vial) 1 mg SQ UD PRN; Protocol PRN Reason: Hypoglycemia Protocol Stop: 07/18/25 06:14 Glucose (Glucose 40% Gel 15 Gm Tube) 15 - 30 gm PO UD PRN; Protocol PRN Reason: Hypoglycemia Protocol Stop: 07/18/25 06:14 Glucose (Glucose 10 Tab/Tube) 4 - 8 tab PO UD PRN; Protocol PRN Reason: Hypoglycemia Protocol Stop: 07/18/25 06:14 Guaifenesin (Guaifenesin 600 Mg Tabcr) 1,200 mg PO Q12 JASVIR Stop: 07/18/25 11:29 Last Admin: 06/19/25 09:38 Dose: 1,200 mg Hydroxyzine HCl (Hydroxyzine Hcl 25 Mg Tab) 25 mg PO HS JASVIR Stop: 07/18/25 20:59 Last Admin: 06/18/25 20:28 Dose: 25 mg Diltiazem HCl 125 mg/ Dextrose 125 mls @ 15 mls/hr IV .Q8H20M JASVIR; Protocol Stop: 07/17/25 15:14 Last Admin: 06/19/25 09:43 Dose: 15 mg/hr, 15 mls/hr Ceftriaxone Sodium (Rocephin) 2,000 mg in 50 mls @ 100 mls/hr IV Q24H JASVIR Stop: 06/23/25 14:59 Last Infusion: 06/19/25 16:07 Dose: Infused Azithromycin (Zithromax) 500 mg in 255 mls @ 127.5 mls/hr IV Q24H JASVIR Stop: 06/22/25 17:59 Last Infusion: 06/18/25 21:16 Dose: Infused Insulin Aspart (Insulin Aspart Per Unit Charge) 0 units SC ACHS [facility] Stop: 07/18/25 07:29 Last Admin: 06/19/25 12:39 Dose: Not Given Levalbuterol HCl (Levalbuterol Tartrate 15 Gm Hfa.Aer.Ad) 2 puffs INH BIDR [facility] Stop: 07/18/25 11:29 Last Admin: 06/19/25 07:09 Dose: 2 puffs Melatonin (Melatonin 3 Mg Tab) 6 mg PO HS [facility] Stop: 07/18/25 20:59 Last Admin: 06/19/25 04:53 Dose: Not Given Metoprolol Succinate (Metoprolol Succ 50mg Ext Rel Tab) 100 mg PO BID [facility] Stop: 07/18/25 20:59 Last Admin: 06/19/25 09:38 Dose: 100 mg Miscellaneous (Remove Nicoderm Patch) 1 each N/A DAILY@0859 [facility] Stop: 07/18/25 08:58 Last Admin: 06/19/25 09:39 Dose: 1 each Miscellaneous (Carbohydrates For Hypoglycemia ) 15 - 30 gm PO UD PRN PRN Reason: Hypoglycemia Treatment Stop: 07/18/25 06:14 Multivitamins (Multivitamin Tab) 1 tab PO DAILY [facility] Stop: 07/18/25 08:59 Last Admin: 06/19/25 09:40 Dose: 1 tab Nicotine (Nicotine 14 Mg/24 Hr Patch) 1 patch TD QAM [facility] Stop: 07/17/25 16:48 Last Admin: 06/19/25 09:40 Dose: 1 patch Ondansetron HCl (Ondansetron Inj 2 Mg/Ml 2 Ml Vial) 4 mg IV Q6H PRN PRN Reason: Nausea Stop: 07/17/25 16:48 Potassium Chloride (Potassium Chloride Crtab 20 Meq Tabcr) 20 meq PO QDL [facility] Stop: 07/18/25 11:29 Last Admin: 06/19/25 13:35 Dose: 20 meq Rosuvastatin Calcium (Rosuvastatin Calcium 20 Mg Tab) 20 mg PO HS [facility] Stop: 07/17/25 20:59 Last Admin: 06/18/25 20:31 Dose: Not Given Sodium Chloride (Sodium Chloride 1 Gm Tablet) 1 gm PO BID [facility] Stop: 07/19/25 08:59 Last Admin: 06/19/25 09:40 Dose: 1 gm PG Care Time/CCT Total # of Minutes Spent Total Time Spent with Patient: Total time spent is greater than 50% in coordination of care (as documented) at patient's floor/unit and/or counseling patient: Coding Level of Care Code 20572 SUB INP/OBS CARE 3/50MIN Diagnoses Atrial fibrillation with RVR I48.91 Implantable loop recorder present Z95.818 Essential hypertension I10 Hyperlipidemia E78.5 S/P ablation of atrial fibrillation Z98.890; Z86.79 Tobacco abuse Z72.0 Atrial flutter I48.92
--- NOTE | 2025-06-19 19:15 | Electrocardiogram Report ---
Test Reason : Blood Pressure : */* mmHG Vent. Rate : 103 BPM Atrial Rate : * BPM P-R Int : * ms QRS Dur : 120 ms QT Int : 386 ms P-R-T Axes : * -50 109 degrees QTcB Int : 505 ms Probable Atrial flutter with premature ventricular or aberrantly conducted complexes Left anterior fascicular block Abnormal ECG When compared with ECG of 17-Jun-2025 12:54, No significant change Confirmed by Víctor Whitmore ([id number]) on 06/19/2025 7:14:39 PM Referred By: REFERRED SELF Confirmed By: Víctor Whitmore
--- NOTE | 2025-06-19 19:16 | Electrocardiogram Report ---
Test Reason : Blood Pressure : */* mmHG Vent. Rate : 77 BPM Atrial Rate : 286 BPM P-R Int : * ms QRS Dur : 120 ms QT Int : 502 ms P-R-T Axes : * -37 89 degrees QTcB Int : 568 ms Atrial flutter with variable A-V block Left axis deviation Right bundle branch block Nonspecific ST and T wave abnormality Abnormal ECG When compared with ECG of 18-Jun-2025 12:04, T wave inversion less evident in Anterolateral leads QT has lengthened Confirmed by Víctor Whitmore ([id number]) on 06/19/2025 7:15:50 PM Referred By: REFERRED SELF Confirmed By: Víctor Whitmore
--- NOTE | 2025-06-19 21:51 | Hospitalist Progress Note ---
Date of Service June 19, 2025 Assessment & Plan (1) Atrial fibrillation with RVR: (2) LLL pneumonia: (3) Hyponatremia: (4) Hypokalemia: (5) Diabetes mellitus: (6) Essential hypertension: (7) Hyperlipidemia: (8) Implantable loop recorder present: Plan 64yo male with history of a.fib s/p ablation procedure at [facility] about 4 years ago, loop recorder status, T2DM, HTN, and hyperlipidemia presents from [facility] after he was found to be in rapid a.fib. He had gone to [facility] for a scheduled colonoscopy when the rapid a.fib was discovered. Despite the a.fib he denies any palpitations, dizziness, chest pain, dyspnea, or dyspnea on exertion. He had cough for several days and in the ER on day of presentaiton developed fever to 38.3 C. #rapid a.fib - improved - -risk factors for such -- prior a.fib history, hypokalemia, dehydration from bowel prep, physiological stress from LLL pneumonia, physiological stress from recent travels, etc. -further, loop recorder interrogation shows mutiple episodes of a.fib since he last saw [facility] in March -remains on cardizem drip - currently at 15mg/hr -remains on meto succ 100mg BID -started Eliquis 5mg BID last pm -as patient has NOT been on chronic anticoagulation, chemical cardioversion or electrical cardioversion (unless it is a MINERVA cardioversion) not recommended at this time -hopefully he will spontaneously convert with correction of low K, Rx of pneumonia, etc -even if he doesn't convert his rate control has improved nicely while here -we walked him in hallway today on the cardizem infusion and rates stayed well below 100 the entire walk -echo with preserved EF & normal valve function -TSH wnl -cardiology consulted - Dr Whitmore - appreciate his consult & recs -plan: wean dilt drip off; start oral cardizem IR 60mg q6h -if he tolerates PO cardizem IR convert to CD tomorrow -f/u Dr Bauer - [facility] [place] [facility] - after d/c #hyponatremia - -volume contracted in the setting of bowel prep and chronic chlorthalidone usage -urine sodium borderline low (30) initially; urine Na now higher, and urine osm is high -place on NaCl tabs 1gm BID -BMP am #hypokalemia - nearly resolved - -2nd to chlorthalidone -2nd to bowel prep/frequent stooling -2nd to limited PO intake since Sunday pm in setting of 2-day prep -cont supplementation #LLL pneumonia - -cont rocephin 2gm daily, day #3 -cont azithromycin 500mg daily for atypical coverage - day #3 -blood cx's x 2 sets remain negative -CTA chest w/o concomitant PE in setting of long-distance air travel recently [place] the [place] -legionella urine ag neg -sputum cx thus far neg -COVID/flu/RSV neg -he had traveled to the [place]; per the literature there are no particular respiratory pathogens that are unique to the [place] -if fevers persist consider full Biofire panel, broadening abx, or combination of actions -suspect fevers will stop by tomorrow and we can convert IV to PO abx at that time -will need repeat CT chest 6-8 weeks to ensure no underlying mass lesion, etc. #tobacco dependence - -nicoderm patch daily -mortgage loan counselor to quit #T2DM - -hold Mounjaro -can cont Farxiga -a1c 6.1% #hyperlipidemia - -cont statin #polycythemia - -likely due to volume contraction -resolved s/p IV fluids #minimally elevated troponin - -likely myocardial demand ischemia in setting of rapid a.fib as well as LLL pneumonia -no ischemic sx's -no evidence of ACS -echo with normal EF and normal LV wall motion #DVT proph - -Eliquis BID care d/w Dr Whitmore anticipate d/c home on 06/20 Admission and Anticipated Discharge Date Admission Date: June 17, 2025 Subjective tele - a.fib (and aflutter at times), rates <100 feeling much better did have some fever this am, however eating well no dyspnea or dyspnea on exertion some sputum doesn't notice a huge difference in taking albuterol w/ his pulmonary symptoms anxious to go home pt's sister was at bedside Review of Systems Review of Systems: gen - feeling much better cv - no cp, no edema GI - no abd pain psych - slept much better last pm Physical Exam Physical Exam: gen - looks well, NAD, minimal cough at times HENT - MMM neck - no JVD heart - irregularly irregular, regular rate, s1 s2, no murmur lungs - rales L base - about 1/[address] up back; scant dry rales R base, no wheeze, no increased work of breathing abd - soft NT ND BS+ ext - no edema, pulses 2+ b/l psych - a/o x 3 Results & Data Results & Data Vital Signs (Past 12 Hours) Vital Signs Temp Pulse Pulse Resp BP Pulse Ox Pulse Ox 06/19/25 19:41 37.0 C 90 18 109/72 91 06/19/25 19:15 82 18 90 06/19/25 16:00 95 06/19/25 16:00 77 06/19/25 15:06 37.4 C 79 18 118/77 91 06/19/25 11:22 06/19/25 11:04 36.8 C 78 19 102/68 93 O2 Del Method O2 Del Method 06/19/25 19:41 Room Air, CPAP 06/19/25 19:15 Room Air 06/19/25 16:00 Room Air 06/19/25 16:00 06/19/25 15:06 Room Air 06/19/25 11:22 Room Air, CPAP 06/19/25 11:04 Room Air Laboratory Results Laboratory Results - last 24 hr 06/17/25 06/19/25 06/19/25 Unknown 06:21 08:06 WBC 10.41 RBC 4.81 Hgb 14.9 D Hct 40.7 L MCV 84.6 MCH 31.0 MCHC 36.6 H RDW Std Deviation 38.7 RDW Coeff of Gael 12.5 Plt Count 202 MPV 8.7 L Immature Gran % (Auto) 0.6 Neut % (Auto) 72.9 Lymph % (Auto) 12.3 [place] % (Auto) 13.5 Eos % (Auto) 0.2 Baso % (Auto) 0.5 Neut # (Auto) 7.59 H Lymph # (Auto) 1.28 [place] # (Auto) 1.41 H Eos # (Auto) 0.02 Baso # (Auto) 0.05 Immature Gran # (Auto) 0.06 Sodium 128 L Potassium 3.8 Chloride 96 L Carbon Dioxide 23 Anion Gap 9 BUN 9 Creatinine 0.72 Est Cr Clr Drug Dosing 120.8 eGFR 102.66 BUN/Creatinine Ratio 12.5 Glucose 127 H POC Glucose 125 H Calcium 8.3 L Urine Osmolality Ur Random Sodium Urine Legionella Ag SEE NOTE 06/19/25 06/19/25 06/19/25 09:09 11:38 16:03 WBC RBC Hgb Hct MCV MCH MCHC RDW Std Deviation RDW Coeff of Gael Plt Count MPV Immature Gran % (Auto) Neut % (Auto) Lymph % (Auto) [place] % (Auto) Eos % (Auto) Baso % (Auto) Neut # (Auto) Lymph # (Auto) [place] # (Auto) Eos # (Auto) Baso # (Auto) Immature Gran # (Auto) Sodium Potassium Chloride Carbon Dioxide Anion Gap BUN Creatinine Est Cr Clr Drug Dosing eGFR BUN/Creatinine Ratio Glucose POC Glucose 116 H 120 H Calcium Urine Osmolality 485 L Ur Random Sodium 64 Urine Legionella Ag 06/19/25 20:19 WBC RBC Hgb Hct MCV MCH MCHC RDW Std Deviation RDW Coeff of Gael Plt Count MPV Immature Gran % (Auto) Neut % (Auto) Lymph % (Auto) [place] % (Auto) Eos % (Auto) Baso % (Auto) Neut # (Auto) Lymph # (Auto) [place] # (Auto) Eos # (Auto) Baso # (Auto) Immature Gran # (Auto) Sodium Potassium Chloride Carbon Dioxide Anion Gap BUN Creatinine Est Cr Clr Drug Dosing eGFR BUN/Creatinine Ratio Glucose POC Glucose 111 H Calcium Urine Osmolality Ur Random Sodium Urine Legionella Ag Diagnostic Findings Microbiology 06/17/25 19:53 Blood Aerobic Blood Culture - Preliminary No growth in Aerobic bottle after 48 hours. 06/17/25 19:53 Blood Anaerobic Blood Culture - Preliminary No growth in Anaerobic bottle after 48 hours. 06/17/25 19:53 Blood Aerobic Blood Culture - Preliminary No growth in Aerobic bottle after 48 hours. 06/17/25 19:53 Blood Anaerobic Blood Culture - Preliminary No growth in Anaerobic bottle after 48 hours. 06/19/25 Unknown Sputum, Expectorated Gram Stain - Final PG Care Time/CCT Total # of Minutes Spent Total Time Spent with Patient: Total time spent is greater than 50% in coordination of care (as documented) at patient's floor/unit and/or counseling patient: Coding Level of Care Code 99132 SUB INP/OBS CARE 2/35MIN Diagnoses Atrial fibrillation with RVR I48.91 LLL pneumonia J18.9 Pneumonia type: due to unspecified organism Hyponatremia E87.1 Hypokalemia E87.6 Diabetes mellitus E11.9 Essential hypertension I10 Hyperlipidemia E78.5 Implantable loop recorder present Z95.818 (2) LLL pneumonia Pneumonia type: due to unspecified organism Qualified Code(s): J18.9 - Pneumonia, unspecified organism
[2025-06-20 06:55] LABS: Anion Gap 10.0 (3-11); Blood Urea Nitrogen 11.0 mg/dl (6-23); Calcium 8.5 mg/dl (8.6-10.3); Carbon Dioxide 23.0 mmol/L (21-32); Chloride 99.0 mmol/L (98-107); Creatinine Clr Calc Pharmacy 119.1 ml/min; Glucose 139.0 mg/dl (70-99(Fasting)); Potassium 3.4 mmol/L (3.5-5.1); Sodium 132.0 mmol/L (136-145)
[2025-06-20 07:46] VITALS: BP 102/66; RESP 18; TEMP 98.4; O2SAT 94
[2025-06-20] MEDS: POTASSIUM CHLORIDE 10 MEQ TABCR PO ONE (08:27)
--- NOTE | 2025-06-20 10:10 | Discharge Summary ---
Discharge Summary Date of Service June 20, 2025 Principal Dx & Hospital Course #1 = Principal Diagnosis (1) Atrial fibrillation with RVR: (2) LLL pneumonia: (3) Hyponatremia: (4) Hypokalemia: (5) Diabetes mellitus: (6) Essential hypertension: (7) Hyperlipidemia: (8) Implantable loop recorder present: Plan 64yo male with history of a.fib s/p ablation procedure at [facility] about 4 years ago, loop recorder status, T2DM, HTN, and hyperlipidemia presents from [facility] after he was found to be in rapid a.fib. He had gone to [facility] for a scheduled colonoscopy when the rapid a.fib was discovered. Despite the a.fib he denies any palpitations, dizziness, chest pain, dyspnea, or dyspnea on exertion. He had cough for several days and in the ER on day of presentaiton developed fever to 38.3 C. #rapid a.fib - improved - -risk factors for such -- prior a.fib history, hypokalemia, dehydration from bowel prep, physiological stress from LLL pneumonia, physiological stress from recent travels, etc. -further, loop recorder interrogation shows mutiple episodes of a.fib since he last saw [facility] in March -remains on cardizem drip - currently at 15mg/hr -remains on meto succ 100mg BID -started Eliquis 5mg BID last pm -as patient has NOT been on chronic anticoagulation, chemical cardioversion or electrical cardioversion (unless it is a MINERVA cardioversion) not recommended at this time -hopefully he will spontaneously convert with correction of low K, Rx of pneumonia, etc -even if he doesn't convert his rate control has improved nicely while here -we walked him in hallway today on the cardizem infusion and rates stayed well below 100 the entire walk -echo with preserved EF & normal valve function -TSH wnl -cardiology consulted - Dr Whitmore - appreciate his consult & recs -plan: wean dilt drip off; start oral cardizem IR 60mg q6h -if he tolerates PO cardizem IR convert to CD tomorrow -f/u Dr Bauer - [facility] - after d/c #hyponatremia - -volume contracted in the setting of bowel prep and chronic chlorthalidone usage -urine sodium borderline low (30) initially; urine Na now higher, and urine osm is high -place on NaCl tabs 1gm BID -BMP am #hypokalemia - nearly resolved - -2nd to chlorthalidone -2nd to bowel prep/frequent stooling -2nd to limited PO intake since Sunday pm in setting of 2-day prep -cont supplementation #LLL pneumonia - -cont rocephin 2gm daily, day #3 -cont azithromycin 500mg daily for atypical coverage - day #3 -blood cx's x 2 sets remain negative -CTA chest w/o concomitant PE in setting of long-distance air travel recently to [place] -legionella urine ag neg -sputum cx thus far neg -COVID/flu/RSV neg -he had traveled to the [place]; per the literature there are no particular respiratory pathogens that are unique to the [place] -if fevers persist consider full Biofire panel, broadening abx, or combination of actions -suspect fevers will stop by tomorrow and we can convert IV to PO abx at that time -will need repeat CT chest 6-8 weeks to ensure no underlying mass lesion, etc. #tobacco dependence - -nicoderm patch daily -retirement plan counselor to quit #T2DM - -hold Mounjaro -can cont Farxiga -a1c 6.1% #hyperlipidemia - -cont statin #polycythemia - -likely due to volume contraction -resolved s/p IV fluids #minimally elevated troponin - -likely myocardial demand ischemia in setting of rapid a.fib as well as LLL pneumonia -no ischemic sx's -no evidence of ACS -echo with normal EF and normal LV wall motion #DVT proph - -Eliquis BID care d/w Dr Whitmore anticipate d/c home on 06/20 Admission HPI Per Admitting Provider 64yo male with history of a.fib s/p ablation procedure at [facility] about 4 years ago, loop recorder, T2DM, HTN, and hyperlipidemia presents from [facility] after he was found to be in rapid a.fib. He had gone to [facility] for a scheduled colonoscopy earlier today when the rapid a.fib was discovered. Despite the a.fib he denies any palpitations, dizziness, chest pain, dyspnea, or dyspnea on exertion. He reports he hasn't eaten regular food since Sunday pm, and he started his colonoscopy prep on Sunday pm. Although he denies any cardiopulmonary symptoms he states he "felt like something was off" starting late Sunday. In addition, he has had a mild cough that began on Sunday. Feels like the cough is from his throat. He recently traveled to the [place] in late April and returned from the [place] to the [place] on June 07. Denies having had leg swelling during the travels or any pulmonary symptoms. Mr Macias does continue to follow with [facility] and saw them in 03/2025. At that time he was told he could go to yearly visits. Is NOT on chronic anticoagulation. Per his recollection his loop recorder in the last several years has only showed 1 episode of PAF. The loop recorder was exchanged out in early 2024 at [facility]. Discharge Exam gen - looks well, NAD, minimal cough at times HENT - MMM neck - no JVD heart - irregularly irregular, regular rate, s1 s2, no murmur lungs - rales L base - about 1/[address] up back; scant dry rales R base, no wheeze, no increased work of breathing abd - soft NT ND BS+ ext - no edema, pulses 2+ b/l psych - a/o x 3 Discharge Plan Discharge Items Patient Disposition: Home - Self-Care Reason For Visit: A.FIB WITH RVR, HYPONATREMIA, HYPOKALEMIA Discharge Diagnosis: 1. rapid atrial fibrillation - much improved 2. hyponatremia (low sodium level) - improving; discharge sodium level 132 3. hypokalemia (low potassium level) - nearly resolved 4. left lower lobe pneumonia - improving 5. several episodes of atrial flutter seen on telemetry 6. loop recorder 7. pre-diabetes 8. hyperlipidemia Condition on Discharge: Good Activity: As commented below Activity Comment: gradually increase activity over the next week, as tolerated Non-emergency contact: Primary Care Provider and Bromination Equipment Operator Call non-emergency contact if: you have any medication questions, your symptoms worsen and you have a fever Follow-up/Referrals: RADHA HICKS [Other] (within 1 week - even if it is a telehealth visit. ) Darian Bauer MD [Physician] - (see Dr Bauer - [facility]/electrophysiology - for your a.fib; within 3-4 weeks) Diet: Carb Consistent or DM2 and Heart Healthy Ambulatory Orders: Basic Metabolic Panel (Routine) Timeframe: 1 Week Location: Determined by Patient Ordered By: Jim Porter Attending Provider Instructions: Mr Macias, You were hospitalized after it was discovered at [facility] that you were back in atrial fibrillation. You were sent to [facility] for admission. While in the ER you developed fever, and imaging showed that you had left lower lobe pneumonia. IV antibiotics were started. Your sodium and potassium levels were off, and IV fluids along with supplemental potassium were given. Various medicines were started for the atrial fibrillation. All of the above issues improved while hospitalized including the atrial fibrillation. You were seen by Dr Víctor Whitmore, [facility], who helped with management of your atrial fibrillation. Your loop recorder device was interrogated, and it showed that you have had several episodes of atrial fibrillation since the summer. Recommendations - 1. pneumonia treatment - -cefuroxime 500mg twice daily x 4 days, first dose later this afternoon/early evening -doxycycline 100mg twice daily x 4 days, first dose later today -most common side effect of both antibiotics - diarrhea -occasional side effect of doxycycline - heartburn/reflux/stomach upset -rare side effect of doxycycline - a rash that develops if you go out in the sun and get lots of sun exposure while on the doxycycline -if you spend a lot of time outdoors in the next few days be sure to cover up, use sunscreen, etc. 2. please have a repeat CT of your chest in 6-8 weeks to ensure the entire pneumonia has resolved on imaging. 3. atrial fibrillation medicines - -increase your metoprolol succinate to 100mg twice daily, first dose tonight -start cardizem CD (diltiazem CD) 180mg once daily, first dose tomorrow morning -Eliquis 5mg twice daily; this is your blood thinner to prevent stroke from the atrial fibrillation; next dose tonight 4. STOP your chlorthalidone 5. Salt tablet - 1gm once daily x 3 days starting 06/21/25 6. check your blood pressure and heart rate on a daily basis. You can use your Apple Watch to monitor your heart rates. Write down your blood pressures and heart rates in a notebook and show these to your family doctor & business team leader. -if your heart rates are consistently over 100 - please notify your business team leader -if your heart rates are consistently less than 60 - also please notify your business team leader 7. for cough/congestion - [id number] Mucinex up to 1200mg twice daily as needed/as desired. 8. it takes a good 10-14 days to make a full recovery from pneumonia. You may notice lingering cough for another 1-2 weeks, fatigue during this period, or even some mild shortness of breath with exertion. All of these symptoms should gradually resolve over time. 9. please have a blood draw checked in 1 week to ensure your sodium and potassium levels are in normal range. You can have these done in [place]. Follow-up - -see Dr Darian Bauer, [facility], for your atrial fibrillation/flutter; ideally within 3-4 weeks -see your family doctor within a week Return to any hospital if - -you have persistent fevers over 100 degrees -you develop severe diarrhea (3 or more liquid stools in 24 hours) -you have worsening shortness of breath -you have any concerns about your atrial fibrillation -you have bleeding from any location -any other concerns It was our pleasure to care for you! -Jim Alejandro Addtl Program Research Specialist Provider Instructions: Blood Thinner (anticoagulant) Medication Instructions: Your atrial fibrillation/flutter condition is typically treated with an anticoagulant. Anticoagulants will thin your blood to help prevent blood clots from forming in the heart. Your blood thinner is ELIQUIS. * You should take your medication exactly as directed. * Never skip a dose. * Never take a double dose. If you miss a dose, take it as soon as you remember. Call your Primary Care doctor or Bromination Equipment Operator if you experience any of the following: * Chest Pain * Sudden Shortness of Breath * Rapid or pounding heart beat * Fainting * Dizziness * Cough with blood or bloody sputum * Sweating more than normal * Bruises * Heavy or uncontrolled bleeding * Blood in your urine, stool or vomit * Black or tarry stools * Heavy nose bleeding Caring for Your Self at Home: * Use an electric shaver in place of a traditional straight razor; this reduces the risk of bleeding while shaving Pending Studies at Discharge: Yes Studies:: blood cultures, but they remain negative (no bacteria in the blood); sputum culture, but thus far negative Stand-Alone Forms: My [facility], Smoking Cessation Medications and DC Order Prescriptions: New Eliquis 5 mg tablet 5 mg PO BID Qty: 60 5RF diltiazem HCl 180 mg Capsule,Extended Release 24hr 180 mg PO QAM Qty: 30 5RF sodium chloride 1,000 mg Tablet,Soluble 1,000 mg PO DAILY Qty: 3 0RF Rx Instructions: start 06/21/25 cefuroxime axetil 500 mg tablet 500 mg PO BID Qty: 8 0RF Rx Instructions: first dose evening of 06/20. doxycycline hyclate 100 mg tablet 100 mg PO BID Qty: 8 0RF Rx Instructions: first dose evening of 06/20. Continued multivitamin Tablet 1 tab PO DAILY rosuvastatin 20 mg tablet 20 mg PO HS dapagliflozin propanediol [Farxiga] 5 mg tablet 5 mg PO QAM potassium chloride 20 mEq tablet extended release 20 meq PO QDL Mounjaro 12.5 mg/0.5 mL pen injector 12.5 mg SUBCUT WK Rx Instructions: THURSDAYS Changed metoprolol succinate 100 mg tablet extended release 24 hr 100 mg PO BID Qty: 60 5RF Discontinued chlorthalidone 50 mg tablet 50 mg PO DAILY Discharge Orders: Discharge Order (Routine); Ordered 06/20/25 Ordered By: Jim Mack/Other Patient Handouts: Apixaban Oral Tablet, Managing Type 2 Diabetes, ED Atrial Fibrillation, ED Atrial Flutter Admission Data Admit Date/Time: 06/17/25 15:15 Attending Provider: Jim Alejandro Admit Provider: Jim Alejandro Primary Care Provider: Radha Hicks Other Providers: Jim Alejandro; Víctor Whitmore Hospital Stay Data Consultations 06/17/25 14:23 ED Decision to Admit Stat 06/18/25 11:28 Consult Cardiology Routine 06/20/25 09:45 Burn CD for patient Stat Diagnostic Imagining Performed 06/17/25 15:05 CT angio chest PE protocol Urgent Pending Results Patient Have Any Pending Studies at Discharge: Yes Discharge Instructions Given to Patient (Per Discharging Provider) Mr Macias, Alek were hospitalized after it was discovered at [facility] that you were back in atrial fibrillation. You were sent to [facility] for admission. While in the ER you developed fever, and imaging showed that you had left lower lobe pneumonia. IV antibiotics were started. Your sodium and potassium levels were off, and IV fluids along with supplemental potassium were given. Various medicines were started for the atrial fibrillation. All of the above issues improved while hospitalized including the atrial fibrillation. You were seen by Dr Víctor Whitmore, [facility], who helped with management of your atrial fibrillation. Your loop recorder device was interrogated, and it showed that you have had several episodes of atrial fibrillation since the summer. Recommendations - 1. pneumonia treatment - -cefuroxime 500mg twice daily x 4 days, first dose later this afternoon/early evening -doxycycline 100mg twice daily x 4 days, first dose later today -most common side effect of both antibiotics - diarrhea -occasional side effect of doxycycline - heartburn/reflux/stomach upset -rare side effect of doxycycline - a rash that develops if you go out in the sun and get lots of sun exposure while on the doxycycline -if you spend a lot of time outdoors in the next few days be sure to cover up, use sunscreen, etc. 2. please have a repeat CT of your chest in 6-8 weeks to ensure the entire pneumonia has resolved on imaging. 3. atrial fibrillation medicines - -increase your metoprolol succinate to 100mg twice daily, first dose tonight -start cardizem CD (diltiazem CD) 180mg once daily, first dose tomorrow morning -Eliquis 5mg twice daily; this is your blood thinner to prevent stroke from the atrial fibrillation; next dose tonight 4. STOP your chlorthalidone 5. Salt tablet - 1gm once daily x 3 days starting 06/21/25 6. check your blood pressure and heart rate on a daily basis. You can use your Apple Watch to monitor your heart rates. Write down your blood pressures and heart rates in a notebook and show these to your family doctor & business team leader. -if your heart rates are consistently over 100 - please notify your business team leader -if your heart rates are consistently less than 60 - also please notify your business team leader 7. for cough/congestion - [id number] Mucinex up to 1200mg twice daily as needed/as desired. 8. it takes a good 10-14 days to make a full recovery from pneumonia. You may notice lingering cough for another 1-2 weeks, fatigue during this period, or even some mild shortness of breath with exertion. All of these symptoms should gradually resolve over time. 9. please have a blood draw checked in 1 week to ensure your sodium and potassium levels are in normal range. You can have these done in [place]. Follow-up - -see Dr Darian Bauer, [facility], for your atrial fibrillation/flutter; ideally within 3-4 weeks -see your family doctor within a week Return to any hospital if - -you have persistent fevers over 100 degrees -you develop severe diarrhea (3 or more liquid stools in 24 hours) -you have worsening shortness of breath -you have any concerns about your atrial fibrillation -you have bleeding from any location -any other concerns It was our pleasure to care for you! -Jim Alejandro Coding Diagnoses Atrial fibrillation with RVR I48.91 LLL pneumonia J18.9 Pneumonia type: due to unspecified organism Hyponatremia E87.1 Hypokalemia E87.6 Diabetes mellitus E11.9 Essential hypertension I10 Hyperlipidemia E78.5 Implantable loop recorder present Z95.818
[2025-06-20 10:23] VITALS: PULSE 77
== END 2025-06-20 10:48 | disposition home or self-care (01) | DRG 308 ==
LOC: ED 12:38 → 4W 15:15